=== PATIENT | male | born 1945 | race Caucasian/White ===

== ENCOUNTER 2024-07-04 00:32 | Emergency (ER) | payer MEDICARE, SELFPAY ==
[2024-07-04] VITALS (9 sets, daily range): BP systolic 137–245; BP diastolic 76–125; PULSE 89; RESP 16–17; TEMP 36.5–36.6; O2SAT 94–97
--- NOTE | 2024-07-04 00:53 | ED_ITS ---
HPI - Male Genitourinary General Chief complaint: Urogenital-Male Stated complaint: Urinary tract problems Time Seen by Provider: 07/04/24 00:39 Source: patient Mode of arrival: ambulatory Limitations: no limitations History of Present Illness HPI Narrative: This is a 78-year-old male with PMH of AFib, CKD on Eliquis, s/p suprapubic catheter who presents to the ED for chief complaint of urinary retention beginning this evening. Patient states that he started seeing blood clots in the catheter passing through for the past 2 days. States that he has had the suprapubic catheter for 14 years and had the catheter changed 2 weeks ago. States that he normally has an 18 [place] catheter which is what is currently in place, however he feels the catheter is different this time. At the time of my evaluation, the patient's catheter did start to spontaneously drain. Nursing staff found his bladder scan did contain 541 mL. During the interview, his catheter has drained about 500 mL of fluid. Denies fevers, chills or infectious symptoms. States he has not tried to flush the catheter. Related Data Allergies Allergy/AdvReac Type Severity Reaction Status Date / Time levofloxacin (From Levaquin) Allergy Intermediate Unknown Verified 07/04/24 00:45 Review of Systems Review of Systems: All systems as dictated in HPI Exam Narrative: GENERAL: Well-appearing, well-nourished, and in no acute distress. HEAD: Normocephalic, atraumatic. EYES: PERRLA and EOMI. ENT: Nares clear, no rhinorrhea or epistaxis. Mucous membranes moist. Oropharynx without tonsillar hypertrophy exudate or other lesions. NECK: Supple. No adenopathy or masses. CHEST: No respiratory distress. Clear to auscultation. No wheezes rales or rhonchi HEART: Regular rate and rhythm. No murmur heard. Normal peripheral pulses. ABDOMEN: Soft, nontender, nondistended, normal active bowel sounds. MSK: Normal range of motion. No edema. SKIN: Warm, dry, no rash. NEURO: Alert and oriented x4. No focal deficits. PSYCH: Normal mood and affect. : Suprapubic catheter in place. Draining out nearly 500 mL of grossly bloody urine on evaluation Course Vital Signs Vital signs: Vital Signs Temperature 97.7 F 07/04/24 00:37 Pulse Rate 89 04/23/25 00:37 Respiratory Rate 17 07/04/24 00:37 Blood Pressure 245/125 H 07/04/24 00:37 Pulse Oximetry 97 07/04/24 00:37 Oxygen Delivery Room Air 07/04/24 00:37 Temperature 97.9 F 07/04/24 02:55 Pulse Rate 89 07/04/24 02:55 Respiratory Rate 16 07/04/24 02:55 Blood Pressure 137/76 07/04/24 02:55 Pulse Oximetry 94 07/04/24 02:55 Oxygen Delivery Room Air 07/04/24 00:37 MDM - Male Genitourinary MDM Narrative Medical decision making narrative: This is a 78-year-old male who presents to the ED for chief complaint of urinary retention after recent hematuria on Eliquis with suprapubic catheter in place. Vitals are showing elevation of blood pressure on arrival, likely due to pain from urinary retention. Exam shows good replacement of suprapubic Madden catheter and spontaneous drainage of dark red blood up to 700 mL that drained freely. After this drainage, attempted to flush and irrigate the catheter with normal saline. Irrigation kit was used. The catheter flushed freely and syringe pullback freely and the color of the fluid has now transitioned into more of a information assurance officer red. Urinalysis concerning for overt urinary tract infection with nitrite positive urine, 2+ leuk esterase, greater than 100 white blood cells. Will prescribe Rx for cefdinir for the infection. Encouraged to follow-up very closely with his urologist on this issue. Will favor leaving in his current catheter as the urine is really throwing at this time and progressively clearing up. Patient will be discharged in stable condition. Supportive measures discussed and return precautions given. Patient is understanding and agreeable with plan for discharge with urology follow-up. Lab Data Labs: Lab Results 07/04/24 Range/Units 01:08 Urine Color Red H (Yellow) Urine Appearance Clear (Clear) Urine pH 6.5 (5.0-9.0) Ur Specific [place] 1.010 (1.001-1.035) Urine Protein 3+ H (Negative) mg/dL Urine Glucose (UA) Negative (Negative) mg/dL Urine Ketones Negative (Negative) mg/dL Ur Blood (Man) 3+ H (Negative) Urine Nitrate Positive H (Negative) Urine Bilirubin 1+ H (Negative) Urine Urobilinogen 0.2 (<2.0) mg/dL Leukocyte Esterase Rfl 2+ H (Negative) NORMA/UL Urine RBC >100 H (0-2) /hpf Urine WBC >100 H (0-3) /hpf Ur Squamous Epith Cells None seen (Few) /hpf Urine Bacteria None seen /hpf Urine Casts 0-2 Discharge Plan Discharge Clinical Impression: Urinary tract infection, Complication, suprapubic catheter obstruction Patient Disposition: Home Condition: Stable Patient Language: Citizen Of [place] Prescriptions: New cefdinir 300 mg capsule 300 mg PO Q12H 7 Days Qty: 14 0RF Follow-up/Referrals: UNKNOWN,DOCTOR [Primary Care Provider] - Time of Disposition: 02:09
--- OUTSIDE RECORDS SUMMARY | 2024-07-04 01:08 | XMS_ITS | Encounter Summary ---
Author Name [facility] [place] [facility] [place] Address [address] [place] [address] Care Team Providers Care Environmental Director Name Role Phone KARISHMA QUINTANA Primary Care Provider Unavailabl e Insurance Providers: All historical and current Section Date Range: From patient's date of to the date document was created. This section includes the names of all active insurance providers for the patient. Insurance Provider Type of Coverage Plan Name Start of Policy Coverage End of Policy Coverage Group Number Member ID Insurance Provider's Telephone Number Policy Gamboa's Name Patient's Relationship to Policy Gamboa [facility] Mar 14, 2022 [id number] [phone] MONICA GLORIA PATIENT [employer]ET[employer] RX PRESCRIPT [facility] Sep 11, 2016 [id number] MONICA GLORIA PATIENT [facility] Oct 12, 2000 [id number] MONICA GLORIA [employer] ([id number]) PRESCRIPT ION [facility] Oct 12, 2000 [id number] [phone] MONICA GLORIA PATIENT MEDICARE (WNR) MEDICARE (M) PART A Oct 12, 2017 PART A [id number] MONICA GLORIA PATIENT MH NET CLAIMS [facility] Oct 12, 2000 [id number] MONICA GLORIA RY PATIENT Selected Encounter This section includes the information on record at [place] for the Encounter. Date/Time Encounter Type Encounter Description Reason Pro vider Source May 11, 2024 07:49 AM Outpatient Encounter ADMIN PAT ACTIVTIES (MASNONCT) [facility] Encounter Template Text not used by [facility] Plan of Treatment: Future Appointments (+ 6 months) and Future Tests (+/- 45 days) The Plan of Treatment section includes future care activities for the patient from all [place] treatmentfacilities. This section includes future appointments and future orders which are active, pending or scheduled. Future Appointments This section includes appointments that were scheduled to occur 6 months from the date of the Encounter, up to a maximum of 20 appointments. The data comes from all [place] treatment facilities. Appointment Date/Time Appointment Type Appointme nt Facility Name May 18, 2024 09:30 AM AMBULATORY - NONE [facility] May 25, 2024 09:30 AM AMBULATORY - MEDICINE [facility] Lab Results: +/- 30 days of the encounter This section includes the Chemistry and Hematology Lab Results on record with [place] for the patient. Radiology Reports and Pathology Reports are provided separately, in subsequent sections. Lab Results This section contains the Chemistry/Hematology Results that were resulted 30 days before or 30 daysafter the date of the Encounter. Date/Time Source Result Type Result - Unit Interpretation Reference Range Specimen Type Comment May 18, 2024 09:31 AM [facility] A1C % BLOOD Specimen Type: BLOOD Comment: Normal: < or = 5.6% Pre-diabetes: 5.7-6.4% Diabetes Mellitus: > or = 6.5% Values obtained from A1C measurements can vary. For typical A1C assays, a reported value of 7.0 could actually be between 6.72 and 7.28 if measured by a reference method. A reported value of 9.0 could actually be between 8.73 and 9.27. Ref: http://www.ngsp. org/CAPdata.asp Ordering Provider: KARISHMA QUINTANA Report Released Date/Time: May 26, 2023 11:02 AM Reporting Lab: [address] [id number] Performing Lab: [address] [phone] A1C % 5.7 H 0.0-5.6 May 18, 2024 09:31 AM [facility] LIPID PNL PLASMA Specimen T ype: PLASMA Comment: eGFR was calculated using the CKD-EPI Creatinine (2020) equation. Low-risk levels (desirable) <200 mg/dL Moderate-risk levels (borderline) 200-239 mg/dL High-risk levels: >= 240 mg/dL Normal: <150 mg/dL -Borderline High: 150-199 mg/dL -High: 200-499 mg/dL -Very High: >500 mg/dL Optimal: <100 mg/dL -Near Optimal/Above Optimal: 100-129 mg/dL -Borderline High: 130-159 mg/dL -High: 160-189 mg/dL -Very High: >=190 mg/dL Ordering Provider: KARISHMA QUINTANA Report Released Date/Time: May 26, 2023 11:02 AM Reporting Lab: [address] [phone] Performing Lab: [address] [phone] DIR. HDL 30 mg/dL L >=60 TRIGLYCERIDES 108 mg/dL See Comment DIR LDL canc CHOL 136 mg/dL See Comment LDL (CALCULATED) 84 mg/dL See Comment May 18, 2024 09:31 AM [facility] COMPREHENSIVE PNL PLASMA Specime n Type: PLASMA Comment: eGFR was calculated using the CKD-EPI Creatinine (2020) equation. Low-risk levels (desirable) <200 mg/dL Moderate-risk levels (borderline) 200-239 mg/dL High-risk levels: >= 240 mg/dL Normal: <150 mg/dL -Borderline High: 150-199 mg/dL -High: 200-499 mg/dL -Very High: >500 mg/dL Optimal: <100 mg/dL -Near Optimal/Above Optimal: 100-129 mg/dL -Borderline High: 130-159 mg/dL -High: 160-189 mg/dL -Very High: >=190 mg/dL Ordering Provider: KARISHMA QUINTANA Report Released Date/Time: May 26, 2023 11:02 AM Reporting Lab: [address] [phone] Performing Lab: [address] [phone] ANION GAP 8 mmol/L 5-15 EGFR 40 mL/min/{1.73_m2} L >= 60 GLUCOSE 110 mg/dL H 70-99 POTASSIUM 3.9 mmol/L 3.5-4.7 SODIUM 144 mmol/L 136-145 BILI,TOTAL 0.8 mg/dL 0.2-1.2 PROTEIN, TOTL 6.9 g/dL 5.7-8.2 ALBUMIN 4.3 g/dL 3.4-5.0 ALKAL PHOS 104 U/L 45-117 ALT 20 U/L 10-65 AST 14 U/L 10-37 UREA NITROGEN 25 mg/dL H 7-21 CALCIUM, TOTAL 9.8 mg/dL 8.7-10.4 CO2 28 mmol/L 21-32 CHLORIDE 108 mmol/L 98-109 CREATININE 1.74 mg/dL H 0.73-1.18 May 18, 2024 09:31 AM [facility] CBC W/DIFF BLOOD Specimen T ype: BLOOD No comment entered. Ordering Provider: KARISHMA QUINTANA Report Released Date/Time: May 26, 2023 11:02 AM Reporting Lab: [place] [id number] [facility] [phone] Performing Lab: [address] [phone] WBC 9.3 10*3/uL 4.0-11.0 RBC 5.13 10*6/uL 4.20-5.70 HGB 15.7 g/dL 13.0-17.0 HCT 47.6 40.0-51.0 MCV 92.8 fL 82.0-99.0 MCH 30.6 pg 27.0-34.0 MCHC 33.0 g/dL 31.0-37.0 MPV 12.4 fL H 8.0-12.[address] 253 10*3/uL 130-400 RDW-CV 14.5 < 15.0 NEUTROPHILS% 77.2 LYMPHS% 13.4 MONOS% 6.7 EOS% 1.9 BASOS% 0.6 IG% 0.2 NEUTROPHILS# 7.1 10*3/uL 1.5-8.0 LYMPHS# 1.2 10*3/uL 1.0-4.0 MONOS# 0.6 10*3/uL 0.2-1.0 EOS# 0.2 10*3/uL 0.0-0.4 BASOS# 0.1 10*3/uL 0.0-0.2 IG# <0.1 10*3/uL 0.0-0.5 NRBC% 0.0 /100{WBCs} 0.0-0.2 NRBC# <0.01 10*3/uL 0.00-0.01 May 18, 2024 09:31 AM [facility] THYROID CASCADE PANEL SERUM Spe cimen Type: SERUM No comment entered. Ordering Provider: KARISHMA QUINTANA Report Released Date/Time: May 26, 2023 11:02 AM Reporting Lab: [place] [id number] [facility] [phone] Performing Lab: [address] [address] TSH3 ULTRA EIA 5.264 u[IU]/mL H 0.550-4.78 0 FREE T4-CASCADE 1.19 ng/dL 0.89-1.76 Encounter Notes: All associated encounter notes This section contains the clinical notes associated to the Encounter. Date/Time Encounter Note(s) Provider Source May 11, 2024 07:49 AM PHARMACY NOTE: LOCAL TITLE: PHARMACY/OUTPATIENT NOTE STANDARD TITLE: PHARMACY NOTE DATE OF NOTE: MAY 11, 2024@07:49 ENTRY DATE: MAY 11, 2024@07:49:42 AUTHOR: GWENDOLYN PEACE COSIGNER: URGENCY: STATUS: COMPLETED with active prescription for LEVOTHYROXINE (SYNTHROID). This product has been converted to the new formulary agent of GENERIC LEVOTHYROXINE SODIUM (XLCare/Ascent). prescription has been converted to the new product at the same dose as the previous LEVOTHYROXINE (SYNTHROID) prescription. was notified via letter. Providers are not required to re-check labs for most patients. However, some patients may benefit from follow-up thyroid function tests 4-6 weeks after starting the new product to evaluate the effect on thyroid function tests and any need for dose adjustment. This is particularly important if a patient reports signs or symptoms consistent with hyper or hypothyroidism. Patients were mailed a letter regarding the switch, instructing them to report any changes in these symptoms to their provider and were provided with the call center phone number for any questions. Evidence from several clinical trials suggests most patients switched from brand to generic levothyroxine (or generic to generic) do not appear to experience marked increased variability in thyroid hormone levels, need for dose adjustments, or risk of adverse events. /triston/ GWENDOLYN PEACE CHIEF OF PHARMACY Signed: 05/11/2024 07:50 GWENDOLYN PEACE HCS
--- OUTSIDE RECORDS SUMMARY | 2024-07-04 01:08 | XMS_ITS | Encounter Summary ---
Author Name [facility] [place] [facility] Address [address] [place] [address] Care Team Providers Care Hall Director Name Role Phone KALEB QUINTANA Primary Care Provider Unavailabl e Insurance [...] Gamboa's Name Patient's Relationship to Policy [facility] Mar 14, 2022 [id number] MONICA GLORIA PATIENT AETNA RX PRESCRIPT [facility] Sep 11, 2016 [id number] MONICA GLORIA PATIENT COVENTRY OF [facility] Oct 12, 2000 [id number] MONICA GLORIA SPOUSE [employer] ([id number]) PRESCRIPT ION COVEN TRY Oct 12, 2000 [id number] MONICA GLORIA PATIENT MEDICARE (WNR) MEDICARE (M) PART A Oct 12, 2017 PART A [id number] MONICA GLORIA PATIENT NET CLAIMS [facility] Oct 12, 2000 [id number] MONICA GLORIA PATIENT Selected Encounter This section includes the information on record at [place] for the Encounter. Date/Time Encounter Type Encounter Description Reason Provider Source May 25, 2024 09:30 AM OFFICE O/P EST MOD 30 MIN PRIMARY CARE/MEDICINE ICD-10-CM G60.3 Idiopathic progressive neuropathy LILIANKALEB PARKER [facility] Encounter Template Text not used by [place] Assessments - Encounter Diagnoses This section includes the primary and secondary diagnoses documented for the Encounter. Date/Time Primary/Secondary Diagnosis Diagnosis Name Provider Source Jun 07, 2024 11:58 AM PRIMARY Idiopathic progressive neuropathy [facility] Jun 07, 2024 11:58 AM SECONDARY Chronic kidney disease, unspecified [facility] Jun 07, 2024 11:58 AM SECONDARY Essential (primary) hypertension [facility] Jun 07, 2024 11:58 AM SECONDARY Gout, unspecified [facility] Jun 07, 2024 11:58 AM SECONDARY Hyperlipidemia, unspecified [facility] Jun 07, 2024 11:58 AM SECONDARY Hypothyroidism, unspecified [facility] Jun 07, 2024 11:58 AM SECONDARY Impaired fasting glucose [facility] Jun 07, 2024 11:58 AM SECONDARY Male erectile dysfunction, unspecified [facility] Jun 07, 2024 11:58 AM SECONDARY Unspecified atrial fibrillation [facility] Lab Results: +/- 30 days of the encounter This section includes the Chemistry and Hematology Lab Results on record with [place] for the patient. Radiology Reports and Pathology Reports are provided separately, in subsequent sections. Lab Results This section contains the Chemistry/Hematology Results that were resulted 30 days before or 30 daysafter the date of the Encounter. Date/Time Source Result Type Result - Unit Interpretation Reference Range Specimen Type Comment May 18, 2024 09:31 AM [facility] A1C % BLOOD Specimen Type: [...] and 9.27. Ref: [email or web address] [email or web address] Ordering Provider: KALEB QUINTANA Report Released Date/Time: May 26, 2023 11:02 AM Reporting Lab: [address] [address] Performing Lab: [address] [address] A1C % 5.7 H 0.0-5.6 May 18, 2024 09:31 AM [facility] LIPID PNL PLASMA Specimen T [...] mg/dL -Very High: >=190 mg/dL Ordering Provider: KALEB QUINTANA Report Released Date/Time: May 26, 2023 11:02 AM Reporting Lab: [address] [address] Performing Lab: [address] [address] DIR. HDL 30 mg/dL L >=60 TRIGLYCERIDES 108 mg/dL See Comment DIR LDL canc CHOL 136 mg/dL See Comment LDL (CALCULATED) 84 mg/dL See Comment May 18, 2024 09:31 AM [facility] COMPREHENSIVE PNL PLASMA Specime n [...] mg/dL -Very High: >=190 mg/dL Ordering Provider: KALEB QUINTANA Report Released Date/Time: May 26, 2023 11:02 AM Reporting Lab: [address] [address] Performing Lab: [address] [address] ANION GAP 8 mmol/L 5-15 EGFR 40 [...] H 0.73-1.18 May 18, 2024 09:31 AM [facility] CBC W/DIFF BLOOD Specimen T ype: BLOOD No comment entered. Ordering Provider: KALEB QUINTANA Report Released Date/Time: May 26, 2023 11:02 AM Reporting Lab: [address] [address] Performing Lab: [address] [address] WBC 9.3 10*3/uL 4.0-11.0 RBC 5.13 10*6/uL [...] 10*3/uL 0.00-0.01 May 18, 2024 09:31 AM [facility] THYROID CASCADE PANEL SERUM Spe cimen Type: SERUM No comment entered. Ordering Provider: KALEB QUINTANA Report Released Date/Time: May 26, 2023 11:02 AM Reporting Lab: [address] [address] Performing Lab: [address] [address] TSH3 ULTRA EIA 5.264 u[IU]/mL H 0.550-4.78 0 FREE T4-CASCADE 1.19 ng/dL 0.89-1.76 Vital Signs: All taken on the encounter date This section contains inpatient and outpatient Vital Signs collected on the date of the Encounter. Date/Time Temperature Pulse Blood Pressure Respiratory Rate SP02 Pain Height Weight Body Mass Index Source May 25, 2024 09:19 AM 99 73 138/71 [address] [facility] Social History: Smoking Status (Most current) and Tobacco Use (All prior to encounter date) This section includes the most current, and the historical, smoking and tobacco- related health factors from the [place] facility where the Encounter took place. Current Smoking Status This section includes the most current smoking, or tobacco-related health factor, from the [place] facility where the Encounter took place. Date/Time Current Smoking Status Comment Zen garcia May 25, 2024 09:30 AM [place]-TOBACCO USE FORMER CIGARETTES [facility] Tobacco Use History This section includes a history of the smoking, or tobacco-related health factors, that were collected on or before the date of the Encounter. The data comes from the [place] facility where the Encounter took place. Date/Time Smoking Status/Tobacco Use Comment F acility May 25, 2024 09:30 AM VA-TOBACCO USE FORMER CIGARETTES [facility] May 26, 2023 10:30 AM VA-TOBACCO FORMER USER [facility] May 26, 2023 10:30 AM VA-TOBACCO QUIT 15 YRS OR MORE [facility] Apr 05, 2022 02:30 PM VA-TOBACCO FORMER USER [facility] Apr 05, 2022 02:30 PM VA-TOBACCO QUIT 15 YRS OR MORE [facility] Mar 12, 2021 09:00 AM VA-TOBACCO FORMER USER [facility] Mar 12, 2021 09:00 AM VA-TOBACCO QUIT 15 YRS OR MORE [facility] Mar 13, 2020 03:30 PM VA-TOBACCO FORMER USER [facility] Mar 13, 2020 03:30 PM VA-TOBACCO QUIT 15 YRS OR MORE [facility] Feb 20, 2019 10:01 AM VA-TOBACCO NEVER USED [facility] Mar 02, 2018 08:25 AM VA-TOBACCO NEVER USED [facility] Apr 29, 2017 02:55 PM LIFETIME NON-USER OF TOBACCO [facility] Mar 22, 2016 09:28 AM LIFETIME NON-USER OF TOBACCO [facility] Jan 02, 2013 10:40 AM QUIT TOBACCO >7 YEARS AGO [facility] Encounter Notes: All associated encounter notes This section contains the clinical notes associated to the Encounter. Date/Time Encounter Note(s) Provider Source May 25, 2024 09:28 AM PRIMARY CARE NOTE: LOCAL TITLE: [facility] STANDARD TITLE: PRIMARY CARE NOTE DATE OF NOTE: MAY 25, 2024@09:28 ENTRY DATE: MAY 25, 2024@09:28:52 AUTHOR: KALEB QUINTANA EXP COSIGNER: URGENCY: STATUS: COMPLETED CHIEF COMPLAINT: Annual appt for ED, HTN, gout, hyperlipidemia, AFib, CKD, hypothyroidism, IFG, screening colon cancer HISTORY OF PRESENT ILLNESS: Nursing notes reviewed. This is a 78 year-old being seen today for above reason. Neuropathy - wants to discuss neuropathy - getting worse - states he takes an all natural supplement that seems to help with pain but still has a lot of numbness. Advsied meds will not help with the numbness. ED - on viagra. Med helps some. HTN - on metoprolol.No longer on this med. BP ok w/o med. Gout - on allopurinol. No gout attacks. hyperlipidemia- on crestor. Last labs showed total 136, trig 108, HDL 30, LDL 84. AFib - on apixiban. Labs ok. NO bleeding. CKD - last creat was 1.74 with eGFR 40. Adised to push fluids and avoid NSAIDS. Sees renal. hypothyroidism - on levothyrxoine. Labs ok. IFG - last HbA1c was 5.7%. Advised to cut back on carbs. screening colon cancer - would not do given age. PAST MEDICAL HISTORY: Medications: As listed in chart and reviewed. Allergies: LEVAQUIN >>Non-VA provider(s): PCP, nephrology, urology, cardiology SOCIAL HISTORY: Habits (Y/N): [n ] Tabacco [y ] Alcohol use [n ] Illicit drug use REVIEW OF SYSTEMS: General: No fever, chills, weight loss, or anorexia. No fatigue. HEENT: No visual or hearing changes. Cardiovascular: No chest pain, palptiations, edema. Respiratory: No cough, dyspnea, or hemoptysis. Gastrointestinal: No abdominal pain, nausea/vomiting, diarrhea, or hematochezia, or melena. Genitalurinary: No dysuria, urgency, frequency, hematuria. Musculoskeletal: No acute muscle or joint pain. Skin: No rash or skin lesions. Neurologic: No headache, dizziness, tingling, weakness. Numbness in feet. Psychoogical: No depressive or anxiety symptoms. No suicidal ideation. OBJECTIVE: Vital signs: DATE/TIME TEMP PULSE RESP BP PAIN WT (LB) P OX 05/25/24 @ 0919 99 73 16 138/71 0 259.9 93 Physical Exam: General: NAD. Awake, alert, oriented x3. Heart: Irreg/Irreg. No murmurs, gallops, rubs. Lungs: CTAB without crackles, rhonchi, or wheeze. Abdomen: Pos bowel sounds, soft, non-distended. No tenderness, guarding, rebound. No HSM. Extremities: No clubbing, cyanosis, edema. Psychiatric: Pleasant, cooperative. Affect is full and mood congruent. Labs: [x ] Reviewed with patient from 05/18/24. ASSESSMENT/PLAN: 1. neuropathy - advised meds would not help with numbness, Current OTC med is helping with the pain. 2. erectile dysfucntin - med helps some 3. hypertension - no longter on BP med 4. gout - continue med 5. hyperlipdiemia - good lipid control, continue med and diet 6. atrial fibrillation - rate controlled and anticaogulated. 7. chronic kidney disease- push fluids, avoid NSAIds, monitor labs. See renal. 8. hypothyroidsim- continue med 9. impared fasting glucose - cut back on carbs, monitoir labs Follow-up: 1 year [x ] Get labs 1 week before: Total time: 30 mins -For new medications, potential side effects reviewed with patient. -Medications refilled as needed. -Patient advised that if symptoms get worse or not better to call or go to nearest ED or urgent care for further evaluation. -Preventive medicine items reviewed with patient as indicated. -Patient advised to return to clinic as planned or as needed. PC-MEDICATION RECONCILIATION: The following medication list was reviewed with the patient/caregiver: MRT5 - Allergies/ADRs FACILITY ALLERGY/ADR -------- No Remote Allergy/ADR Data available for this patient [facility] MRR1 - Med Reconciliation INCLUDED IN THIS LIST: Alphabetical list of active outpatient prescriptions dispensed from this [facility] (local) and dispensed from another VA or DoD facility (remote) as well as inpatient orders (local pending and active), local clinic medications, locally documented non-VA medications, and local prescriptions that have or been discontinued in the past 90 days. Non-VA Meds Last Documented On: Mar 22, 2016 NOTE The display of VA prescriptions dispensed from another VA or DoD facility (remote) is limited to active outpatient prescription entries matched to National Drug File at the originating site and may not include some items such as investigational drugs, compounds, etc. NOT INCLUDED IN THIS LIST: Medications self-entered by the patient into personal health records (i.e. [employer]) are NOT included in this list. Non-VA medications documented outside this [place], remote inpatient orders (regardless of status) and remote clinic medications are NOT included in this list. The patient and provider must always discuss medications the patient is taking, regardless of where the medication was dispensed or obtained. OUTPT ALLOPURINOL 300MG TAB (Status = Discontinued) TAKE ONE TABLET BY MOUTH DAILY WITH FOOD - FOR GOUT Rx# [id number] Last Released: 05/08/24 Qty/Days Supply: Rx Expiration Date: 05/26/24 Refills Remainin OUTPT ALLOPURINOL 300MG TAB (Status = Active/Suspended) TAKE ONE TABLET BY MOUTH DAILY WITH FOOD - FOR GOUT Rx# [id number] Last Released: Qty/Days Supply: Rx Expiration Date: 05/26/25 Refills Remainin OUTPT APIXABAN 5MG TAB (Status = Discontinued) TAKE ONE TABLET BY MOUTH TWICE A DAY BLOOD THINNER Rx# [id number] Last Released: 05/02/24 Qty/Days Supply: Rx Expiration Date: 05/26/24 Refills Remainin OUTPT APIXABAN 5MG TAB (Status = Active/Suspended) TAKE ONE TABLET BY MOUTH TWICE A DAY BLOOD THINNER Rx# [id number] Last Released: Qty/Days Supply: Rx Expiration Date: 05/26/25 Refills Remainin OUTPT LEVOTHYROXINE NA (SYNTHROID) 50MCG TAB (Status = Discontinued) TAKE ONE TABLET BY MOUTH DAILY FOR THYROID Rx# [id number] Last Released: 02/06/24 Qty/Days Supply: Rx Expiration Date: 05/20/24 Refills Remainin Indication: FOR THYROID OUTPT LEVOTHYROXINE NA (SYNTHROID) 50MCG TAB (Status = Discontinued) TAKE ONE TABLET BY MOUTH DAILY FOR THYROID Rx# [id number] Last Released: 04/25/24 Qty/Days Supply: Rx Expiration Date: 04/24/25 Refills Remainin Indication: FOR THYROID OUTPT LEVOTHYROXINE NA 50MCG TAB (Status = Active/Suspended) TAKE ONE TABLET BY MOUTH DAILY FOR THYROID FOR THYROID (REPLACES SYNTHROID) Rx# [id number] Last Released: QtyDays Supply: Rx Expiration Date: 04/24/25 Refills Remainin Indication: FOR THYROID OUTPT METOPROLOL TARTRATE 25MG TAB (Status = Discontinued) TAKE ONE-HALF TABLET BY MOUTH TWICE A DAY WITH MEALS FOR BLOOD PRESSURE Rx# [id number] Last Released: 05/27/23 Qty/Days Supply: Rx Expiration Date: 05/26/24 Refills Remainin Indication: FOR BLOOD PRESSURE OUTPT ROSUVASTATIN CA 10MG TAB (Status = Active) TAKE ONE TABLET BY MOUTH AT BEDTIME CALL YOUR PROVIDER IF YOU HAVE MUSCLE PAIN, TENDERNESS OR WEAKNESS. STOP LOVASTATIN Rx# [id number] Last Released: 05/27/23 Qty/Days Supply: Rx Expiration Date: 05/26/24 Refills Remainin Indication: FOR CHOLESTEROL OUTPT SILDENAFIL CITRATE 100MG TAB (Status = Discontinued) TAKE ONE TABLET BY MOUTH EVERY DAY NEEDED TAKE 30 TO 60 MINUTES PRIOR TO SEXUAL ACTIVITY; LIMITED TO 6 DOSES PER MONTH Rx# [id number] Last Released: 05/11/24 Qty/Days Supply: Rx Expiration Date: 05/26/24 Refills Remainin Indication: FOR ERECTILE DYSFUNCTION OUTPT SILDENAFIL CITRATE 100MG TAB (Status = Active/Suspended) TAKE ONE TABLET BY MOUTH EVERY DAY NEEDED TAKE 30 TO 60 MINUTES PRIOR TO SEXUAL ACTIVITY; LIMITED TO 6 DOSES PER MONTH Rx# [id number] Last Released: QtyDays Supply: Rx Expiration Date: 05/26/25 Refills Remainin Indication: FOR ERECTILE DYSFUNCTION SUPPLIES Potential risks, benefits, and alternative to medications prescribed were discussed with /caregiver who was given an opportunity to ask questions, which were answered to the best of my ability and seemingly to their satisfaction. Musella/caregiver was/were instructed to contact provider (means provided) with any concerns or questions. A list of reconciled medications was provided to the Musella/caregiver. Diagnostic Colonoscopy: (+) FIT/FOBT identified. A diagnostic Colonoscopy is due based on information available to this reminder. A diagnostic colonoscopy is not recommended/indicated. Reason: age Due to patient's age, risk level, and/or co-morbid conditions, discontinuation of asymptomatic colorectal cancer screening/surveillance is recommended. This recommendation has been discussed with the patient and/or guardian /triston/ Kaleb Quintana M.D. STAFF PACT PHYSICIAN Signed: 05/25/2024 09:43 KALEB QUINTANA [facility] May 25, 2024 09:19 AM NURSING NOTE: LOCAL TITLE: BETH/PREVMED STANDARD TITLE: NURSING NOTE DATE OF NOTE: MAY 25, 2024@09:19 ENTRY DATE: MAY 25, 2024@09:19:16 AUTHOR: FREDA CESAR EXP COSIGNER: URGENCY: STATUS: COMPLETED TWO OR MORE PATIENT IDENTIFIERS REQUIRED FULL NAME SS NUMBER Date here for annual appointment PCP: Josue Specialists: nephrology, urology, cardiology wants to discuss neuropathy - getting worse - states he takes an all natural supplement that seems to help with pain but still has a lot of numbness Alcohol Use Screen (AUDIT-C): Alcohol Screen: SCREEN FOR ALCOHOL (AUDIT-C) An alcohol screening test (AUDIT-C) was negative (score=1). 1. How often did you have a drink containing alcohol in the past year? Consider a drink to be a 12 ounce can or bottle of regular beer, 8 ounces of malt liquor, a 5 ounce glass of table wine, or a 1.5 ounce shot of liquor (like scotch, gin, or vodka). Monthly or less 2. How many drinks containing alcohol did you have on a typical day when you were drinking in the past year? One or two drinks 3. How often did you have six or more drinks on one occasion in the past year? Never Depression Screening: Perform PHQ-2 A PHQ-2 screen was performed. The score was 0 which is a negative screen for depression. Over the past two weeks, how often have you been bothered by the following problems? 1. Little interest or pleasure in doing things Not at all 2. Feeling down, depressed, or hopeless Not at all Sexual Orientation: The patient thinks of their sexual orientation as: Prefer not to answer RHS Screen: RHS Screen Environmental Check Screening was not completed at this time due to: Other: declined Suicide Screen: C-SSRS Screening [place] Suicide Severity Rating Scale (C-SSRS) screener 1. Over the past month, have you wished you were or wished you could go to sleep and not wake up? No 2. Over the past month, have you had any actual thoughts of killing yourself? No 3. Over the past month, have you been thinking about how you might do this? Response not required due to responses to other questions. 4. Over the past month, have you had these thoughts and had some intention of acting on them? Response not required due to responses to other questions. 5. Over the past month, have you started to work out or worked out the details of how to kill yourself? Response not required due to responses to other questions. 6. If yes, at any time in the past month did you intend to carry out this plan? Response not required due to responses to other questions. 7. In your lifetime, have you ever done anything, started to do anything, or prepared to do anything to end your life (for example, collected pills, obtained a gun, gave away valuables, went to the roof but didn't jump)? No 8. If YES, was this within the past 3 months? Response not required due to responses to other questions. BETH-EDUCATION ASSESSMENT: `````````````````````````` ```````````` ANNUAL EDUCATION NEEDS/BARRIER ASSESSMENT Primary healthcare language: Estonian Barriers to Learning: Physical: None Cognitive: Memory Problems Comment: short term Socioeconomic: None Preferred Learning Methods: Demonstration - Watching and the Doing `````````````````````````` ```````````` BETH-EXERCISE SCREEN: Patient Refused Exercise Screen. Has the patient fallen within the past 12 months? YES. Known reason: Reason: loss of balance/neuropathy BETH-PT AT RISK INCAPACITATED SCREEN: 1) Does the patient meet any of the criteria for being considered incapacitated? [ NO ] BETH-SKIN RISK ASSESSMENT: BETH/SKIN RISK REMINDER *EDUCATION FACULTY MEMBER* The reports no current pressure ulcers, wounds, or a history of pressure ulcers. The reports no use of a wheelchair for mobility at least 75% of the time. BETH/ROA INDEX (ADLS SCREEN): FUNCTIONAL: Roa Index of [place] in Activities of Daily Living ACTIVITIES INDEPENDENCE (1 point) NO supervision, direction, or personal assistance. DEPENDENCE (0 points) WITH supervision, direction, personal assistance, OR total care. BATHING Point(s) (1 point) Baths self completely or needs help in bathing only a single a single part of the body such as the back, genital area or disabled extremity. DRESSING Point(s) (1 point) Gets clothes from closets and drawers and puts on clothes and outer garments complete with fasteners. May complete with fasteners. May have help tying shoes. TOILETING Point(s) (1 point) Goes to toilet, gets on and off, arranges clothes, cleans genital area without help.\ TRANSFERRING Point(s) (1 point) Moves in and out of bed or chair unassisted. Mechanical transferring aides are acceptable. CONTINENCE Point(s) (1 point) Exercises complete self control over urination and defecation. FEEDING Point(s) (1 point) Gets food from plate into mouth without help Preparation of food may be done by another person. TOTAL POINTS: 6=High (patient independent) 0=Low (patient very dependent) 6 Tobacco Use Screening: The patient is a former cigarette smoker. Quit smoking GREATER THAN OR EQUAL to 15 years. The patient has never used other types of tobacco. Td/Tdap Immunization: The patient declines to receive the recommended dose of Td/Tdap vaccine. Immunization: TD(ADULT) UNSPECIFIED FORMULATION Refusal Reason: PATIENT DECISION Patient refuses all immunization(s) in the Td group Date Documented: 05/25/24 09:26 Stress: Musella reports nothing in the last 6 months that has caused worry or stress. COVID-19 Immunization: Refused Moderna Monovalent COVID-19 vaccine Immunization: COVID-19 (MODERNA), MRNA, LNP-S, PF, 50 MCG/0.5 ML (AGES 12 + YEARS) Refusal Reason: PATIENT DECISION Patient refuses all immunization(s) in the COVID-19 group Date Documented: 05/25/24 09:26 RSV Immunization: Respiratory Syncytial Virus (RSV) Vaccine: Refused [employer] (RSV vaccine, adjuvanted, Arexvy). Immunization: RSV, RECOMBINANT, PROTEIN SUBUNIT RSVPREF3, ADJUVANT RECONSTITUTED, 0.5 ML, PF Refusal Reason: PATIENT DECISION Patient refuses all immunization(s) in the RSV group Date Documented: 05/25/24 09:26 /triston/ FREDA CESAR lpn Signed: 05/25/2024 09:27 FREDA CESAR [facility]
--- OUTSIDE RECORDS SUMMARY | 2024-07-04 01:08 | XMS_ITS | Encounter Summary ---
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 Sep 11, 2016 [id number] [phone] MONICA GLORIA [facility] Oct 12, 2000 [id number] MONICA GLORIA [employer] ([id number]) PRESCRIPT ION [facility]Y Oct 12, 2000 [id number] [phone] MONICA GLORIA PATIENT MEDICARE (WNR) MEDICARE (M) PART A Oct 12, 2017 PART A [id number] [phone] MONICA GLORIA PATIENT MH NET CLAIMS [facility] Oct 12, 2000 [id number] MONICA GLORIA PATIENT Selected Encounter This section includes the information on [place] at [place] for the Encounter. Date/Time Encounter Type Encounter Description Reason Pro vider Source Sep 30, 2023 12:32 PM Outpatient Encounter ADMIN PAT ACTIVTIES (MASNONCT) [facility] Encounter Template Text not used by [facility] Encounter Notes: All associated encounter notes This section contains the clinical notes associated to the Encounter. Date/Time Encounter Note(s) Provider Source Sep 30, 2023 12:35 PM PHARMACY LETTERS: LOCAL TITLE: ANTICOAGULATION HUB DOAC ADHERENCE LETTER STANDARD TITLE: PHARMACY LETTERS DATE OF NOTE: SEP 30, 2023@12:35 ENTRY DATE: SEP 30, 2023@12:35:19 AUTHOR: DARLIN NUNEZIGNER: URGENCY: STATUS: COMPLETED ALIA GLORIA [address] [place] [address] SEP 30, 2023 Dear ALIA GLORIA The [place] [facility] is responsible for ensuring safe and effective use of your apixaban (Eliquis). Our records show that you have not filled your prescription in over a month. Not taking this medication as prescribed can result in a higher risk of stroke and/or life-threatening blood clots. Please remember to take your medication exactly as prescribed and always alert your health care providers that you are taking this medication. You can refill your prescription by calling . Please contact your PACT team if you have stopped taking this medication or if other medical providers have advised you to change your dose. If you have any planned interruptions in therapy (e.g. surgery) please report this as well. THIS IS A COURTESY LETTER. IF YOU ARE TAKING apixaban (Eliquis) REGULARLY, YOU DO NOT NEED TO CONTACT [facility], [place] [facility] DARLIN NUNEZ [facility] Sep 30, 2023 12:32 PM PHARMACY NOTE: LOCAL TITLE: ANTICOAGULATION HUB DOAC STANDARD TITLE: PHARMACY NOTE DATE OF NOTE: SEP 30, 2023@12:32 ENTRY DATE: SEP 30, 2023@12:32:09 AUTHOR: DARLIN NUNEZIGNER: URGENCY: STATUS: COMPLETED Direct Oral Anticoagulant (DOAC) Surveillance - Clinical Technical Sales Specialist Drug: Apixaban WEIGHT/LABS: 246.9 lb [111.99 kg] (05/26/2023 10:12) BMI: 32.6 (MAY 26, 2023@10:12:49) CrCl=66.52 (Wt: 05/26/2023 10:12) (Actual Body Weight) SCr Date: MAY 19, 2023 [place] Labs: Test Name Result Units Ref Range Collection DT CREATININE 1.52 H mg/dL .73 -1.18 05/19/2023 Test Name Result Units Ref Range Collection DT HGB 16.0 g/dL 13 - 17 05/19/2023 Test Name Result Units Ref Range Collection DT HCT 48.4 % 40 - 51 05/19/2023 Collection DT Specimen Test Name Result Units Ref Range 05/19/2023 09:[address] 234 K/uL 130 - 400 Test Name Result Units Ref Range Collection DT AST 18 U/L 10 - 37 05/19/2023 Test Name Result Units Ref Range Collection DT ALT 18 U/L 10 - 65 05/19/2023 ASSESSMENT: Potential Nonadherance Overdue for Refill by 35+ days. Attempted to reach patient/caregiver by phone to assess potential nonadherence. Per the DOAC PMT, patient has not filled his DOAC since 05/27/23 for 90 day supply. Unable to reach patient/caregiver to assess. Will send an adherence letter and/or Secure Message. Alerting PACT to review and follow-up if appropriate. Time Spent in minutes: 4 /triston/ Darlin Nunez Clinical Technical Sales Specialist Signed: 09/30/2023 12:35 Receipt Acknowledged By: 09/30/2023 12:37 /es/ Kaleb Quintana M.D. MVinicius 09/30/2023 12:39 /es/ Jonathan Elias RN RN for DARLIN JOHNSTON [facility]
--- OUTSIDE RECORDS SUMMARY | 2024-07-04 01:09 | XMS_ITS | Continuity of Care Document ---
Author Name [facility] Organization [facility] Care Team Providers Care Surface Lay Out Technician Name Role Phone [facility] Unavailable Unavailable Problems Combined list of problems from [facility] and [facility] facilities. It does not include entries that were removed or entered in error. Problem Status Onset Date Problem Type Date of Resolution Comments Source Acquired trigger finger Active Condition [facility] Benign essential hypertension Active Condition [facility] Blood glucose abnormal Active Condition [facility] Chronic atrial fibrillation Active Condition [facility] Erectile dysfunction (SNOMED CT [id number]) Active Condition [facility] Exposure to Potentially Hazardous Substance (SCT [id number]) Active Condition [facility] Gout Active Condition [facility] Hyperlipidemia Active Condition [facility] Hypothyroidism Active Condition [facility] Neuropathy Active Condition [facility] Raised prostate specific antigen Active Condition [facility] Renal failure syndrome Active Condition [facility] Diagnosis: ICD-10-CM 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 Medication Details Route Status Patient Instructions Prescription Expires Prescription Number Last Dispense Date Ordering Provider Order Date Order Qty Source ALLOPURINOL 300MG TAB TAKE ONE TABLET BY MOUTH DAILY WITH FOOD - FOR GOUT ORAL SUSPEND ED 05/26/2025 [id number] ALBA QUINTANA [address] [place] [address] ALLOPURINOL 300MG TAB TAKE ONE TABLET BY MOUTH DAILY WITH FOOD - FOR GOUT ORAL DISCONT INUED 05/26/2024 [id number] ALBA QUINTANA [address] [place] [address] APIXABAN 5MG TAB TAKE ONE TABLET BY MOUTH TWICE A DAY BLOOD THINNER ORAL SUSPEND ED 05/26/2025 [id number] 5 ALBA QUINTANA 2024 [address] [facility] APIXABAN 5MG TAB TAKE ONE TABLET BY MOUTH TWICE A DAY BLOOD THINNER ORAL DISCONT INUED 05/26/2024 [id number] 5 ALBA QUINTANA 2023 180 [facility] LEVOTHYROXI NE NA 50MCG TAB TAKE ONE TABLET BY MOUTH DAILY FOR THYROID FOR THYROID (REPLACE S SYNTHROI D) ORAL SUSPEND ED 04/24/2025 [id number] ALBA QUINTANA 2024 90 [facility] LEVOTHYROXI NE NA 50MCG TAB (SYNTHROID) TAKE ONE TABLET BY MOUTH DAILY FOR THYROID ORAL DISCONT INUED 04/24/2025 [id number] 5 ALBA QUINTANA 2024 90 [facility] LEVOTHYROXI NE NA 50MCG TAB (SYNTHROID) TAKE ONE TABLET BY MOUTH DAILY FOR THYROID ORAL DISCONT INUED 05/20/2024 [id number] 4 ALBA QUINTANA 2023 90 [facility] METOPROLOL TARTRATE 25MG TAB TAKE ONE-HALF TABLET BY MOUTH TWICE A DAY WITH MEALS FOR BLOOD PRESSURE ORAL DISCONT INUED BY PROVIDE R 05/26/2024 [id number] 4 ALBA QUINTANA 2023 90 [facility] ROSUVASTATI N CA 10MG TAB TAKE ONE TABLET BY MOUTH AT BEDTIME CALL YOUR PROVIDER IF YOU HAVE MUSCLE PAIN, TENDERNE SS OR WEAKNESS . STOP LOVASTAT IN ORAL 05/26/2024 [id number] 4 ALBA QUINTANA 2023 90 [facility] SILDENAFIL CITRATE 100MG TAB TAKE ONE TABLET BY MOUTH EVERY DAY NEEDED TAKE 30 TO 60 MINUTES PRIOR TO SEXUAL ACTIVITY ; LIMITED TO 6 DOSES PER MONTH ORAL SUSPEND ED 05/26/2025 [id number] 5 ALBA QUINTANA 2024 18 [facility] SILDENAFIL CITRATE 100MG TAB TAKE ONE TABLET BY MOUTH EVERY DAY NEEDED TAKE 30 TO 60 MINUTES PRIOR TO SEXUAL ACTIVITY ; LIMITED TO 6 DOSES PER MONTH ORAL DISCONT INREGENCY [facility] 05/26/2024 [id number] ALBA QUINTANA 2023 18 [facility] SILDENAFIL CITRATE 100MG TAB TAKE ONE TABLET BY MOUTH EVERY DAY NEEDED TAKE 30 TO 60 MINUTES PRIOR TO SEXUAL ACTIVITY ; LIMITED TO 6 DOSES PER MONTH ORAL DISCONT INREGENCY [facility] 05/26/2024 [id number] 4 ALBA QUINTANA 2023 6 [facility] Allergies, Adverse Reactions, Alerts Combined list of allergies from [facility] facilities. It does not include entries that were removed or entered in error. Substance Category Reaction Severity Reaction type Status Date Reported Comments Source JUDSON Propensity to adverse reactions to drug (finding) active 01/02/2013 [facility] Immunizations Combined list of available immunizations from the [facility] Defense and [facility] facilities. Immunization Series Date Given Administered By Site Reaction Lot Number CVX Code Drug Trolley Collector Status Comments Source INFLUENZA, HIGH-DOSE, TRIVALENT, PF 2023 COLLIN MOMIN LEFT DELTO ID [id number] 135 complet ed [facility] [place], [facility] INFLUENZA, HIGH-DOSE, QUADRIVALENT 2022 AVIS POLLACK LEFT DELTO ID [id number] 197 complet ed Completed Series, [facility] [place], [facility] INFLUENZA VACCINE, QUADRIVALENT, ADJUVANTED 2021 205 complet ed [facility] COVID-19 (PFIZER), MRNA, LNP-S, PF, 30 MCG/0.3 ML DOSE, ODILON-SUCROSE (AGES 12+ YEARS) 4 2021 217 complet ed HISTORICA L INFORMATI ON - FROM OTHER REGISTRY, [facility] ZOSTER RECOMBINANT 2 2021 187 complet ed [facility] ZOSTER RECOMBINANT 1 2020 187 complet ed [facility] COVID-19 (MODERNA), MRNA, LNP-S, PF, 100 MCG OR 50 MCG DOSE 3 2020 207 complet ed [facility] INFLUENZA, HIGH-DOSE, QUADRIVALENT 7 2020 197 complet ed HISTORICA L INFORMATI ON - FROM OTHER REGISTRY, [facility] INFLUENZA, UNSPECIFIED FORMULATION 2020 88 complet ed [facility] COVID-19 (MODERNA), MRNA, LNP-S, PF, 100 MCG OR 50 MCG DOSE 2 2020 207 complet ed [facility] COVID-19 (MODERNA), MRNA, LNP-S, PF, 100 MCG OR 50 MCG DOSE 1 2020 207 complet ed [facility] INFLUENZA, INJECTABLE, QUADRIVALENT, PRESERVATIVE FREE 6 2019 150 complet ed HISTORICA L INFORMATI ON - FROM OTHER REGISTRY, [facility] INFLUENZA, UNSPECIFIED FORMULATION 5 2019 88 complet ed HISTORICA L INFORMATI ON - FROM OTHER REGISTRY, [facility] INFLUENZA, UNSPECIFIED FORMULATION 2019 88 complet ed [facility] INFLUENZA, TRIVALENT, ADJUVANTED 2018 168 complet ed [facility] INFLUENZA, TRIVALENT, ADJUVANTED 2017 168 complet ed [facility] INFLUENZA, SEASONAL, INJECTABLE, PRESERVATIVE FREE 2016 140 complet ed Left Deltoid 0.5ml IM [facility] INFLUENZA, SEASONAL, INJECTABLE, PRESERVATIVE FREE 4 2015 140 complet ed HISTORICA L INFORMATI ON - FROM OTHER REGISTRY, [facility] INFLUENZA, SEASONAL, INJECTABLE, PRESERVATIVE FREE 2015 140 complet ed Left Deltoid 0.5ml IM [facility] INFLUENZA, UNSPECIFIED FORMULATION 2015 88 complet ed [facility] INFLUENZA, UNSPECIFIED FORMULATION 2014 YA CAMPA 88 complet ed [facility] PNEUMOCOCCAL POLYSACCHARID E PPV23 1 2014 33 complet ed HISTORICA L INFORMATI ON - FROM OTHER REGISTRY, [facility] PNEUMOCOCCAL CONJUGATE PCV 13 2013 133 complet ed [facility] ZOSTER LIVE 2013 121 complet ed [facility] INFLUENZA, HIGH DOSE SEASONAL 3 2013 135 complet ed HISTORICA L INFORMATI ON - FROM OTHER REGISTRY, [facility] INFLUENZA, UNSPECIFIED FORMULATION 2013 88 complet ed [facility] INFLUENZA, SEASONAL, INJECTABLE, PRESERVATIVE FREE 2 2013 140 complet ed HISTORICA L INFORMATI ON - FROM OTHER REGISTRY, [facility] TDAP 1 2013 115 complet ed HISTORICA L INFORMATI ON - FROM OTHER REGISTRY, [facility] ZOSTER LIVE 1 2013 121 complet ed HISTORICA L INFORMATI ON - FROM OTHER [facility], [facility] PNEUMOCOCCAL POLYSACCHARID E PPV23 2012 33 complet ed Right Deltoid 0.5ml IM [facility] TDAP 2012 115 complet ed Left Deltoid 0.5ml IM [facility] INFLUENZA, SEASONAL, INJECTABLE, PRESERVATIVE FREE 1 2012 140 complet ed HISTORICA L INFORMATI ON - FROM OTHER REGISTRY, [facility] INFLUENZA, UNSPECIFIED FORMULATION 2012 88 complet ed [facility] HEP B, UNSPECIFIED FORMULATION 3 1992 45 complet ed HISTORICA L INFORMATI ON - FROM OTHER REGISTRY, [facility] HEP B, UNSPECIFIED FORMULATION 2 1992 45 complet ed HISTORICA L INFORMATI ON - FROM OTHER REGISTRY, [facility] HEP B, UNSPECIFIED FORMULATION 1 1992 45 complet ed HISTORICA L INFORMATI ON - FROM OTHER REGISTRY, [facility] Results Combined list of recent chemistry, hematology and other laboratory results from [facility] and [facility], ranging from 15 months to all on record, depending upon the facility. Order Name Results Value Reference Range Date Interpretation Specimen Comments Source A1C % HEMOGLOBIN A1C/HEMOGL OBIN.TOTAL IN BLOOD 5.7 0.0 - 5.6 05/18 H Specimen Type: BLOOD Comment: Normal: < or = 5.6% Pre-diabete s: 5.7-6.4% Diabetes Mellitus: > or = 6.5% Values obtained from A1C measurement s can vary. For typical A1C assays, a reported value of 7.0 could actually be between 6.72 and 7.28 if measured by a reference method. A reported value of 9.0 could actually be between 8.73 and 9.27. Ref: http://www. ngsp.org/[place] Pdata.asp Ordering Provider: CHRIS QUINTANA Report Released Date/Time: May 26, 2023 11:02 AM Reporting Lab: [facility] [address] [phone] Performing Lab: [facility] [address] [address] [facility] LIPID PNL CHOLESTERO L IN HDL [MASS/VOLU ME] IN SERUM OR PLASMA 30 mg/dL 60 05/18 L Specimen Type: PLASMA Comment: eGFR was calculated using the CKD-EPI Creatinine (2020) equation. Low-risk levels (desirable) <200 mg/dL Moderate-ri sk levels (borderline ) 200-239 mg/dL High-risk levels: >= 240 mg/dL Normal: <150 mg/dL -Borderline High: 150-199 mg/dL -High: 200-499 mg/dL -Very High: >500 mg/dL Optimal: <100 mg/dL -Near Optimal/Abo ve Optimal: 100-129 mg/dL -Borderline High: 130-159 mg/dL -High: 160-189 mg/dL -Very High: >=190 mg/dL Ordering Provider: CHRIS QUINTANA Report Released Date/Time: May 26, 2023 11:02 AM Reporting Lab: [address] [address] Performing Lab: [address] [phone] [facility] LIPID PNL TRIGLYCERI DE [MASS/VOLU ME] IN SERUM OR PLASMA 108 mg/dL 05/18 Specimen Type: PLASMA Comment: eGFR was calculated using the CKD-EPI Creatinine (2020) equation. Low-risk levels (desirable) <200 mg/dL Moderate-ri sk levels (borderline ) 200-239 mg/dL High-risk levels: >= 240 mg/dL Normal: <150 mg/dL -Borderline High: 150-199 mg/dL -High: 200-499 mg/dL -Very High: >500 mg/dL Optimal: <100 mg/dL -Near Optimal/Abo ve Optimal: 100-129 mg/dL -Borderline High: 130-159 mg/dL -High: 160-189 mg/dL -Very High: >=190 mg/dL Ordering Provider: CHRIS QUINTANA Report Released Date/Time: May 26, 2023 11:02 AM Reporting Lab: [address] [address] Performing Lab: [address] [address] [facility] LIPID PNL CHOLESTERO L IN LDL [MASS/VOLU ME] IN SERUM OR PLASMA BY DIRECT ASSAY [facility] 05/18 Specimen Type: PLASMA Comment: eGFR was calculated using the CKD-EPI Creatinine (2020) equation. Low-risk levels (desirable) <200 mg/dL Moderate-ri sk levels (borderline ) 200-239 mg/dL High-risk levels: >= 240 mg/dL Normal: <150 mg/dL -Borderline High: 150-199 mg/dL -High: 200-499 mg/dL -Very High: >500 mg/dL Optimal: <100 mg/dL -Near Optimal/Abo ve Optimal: 100-129 mg/dL -Borderline High: 130-159 mg/dL -High: 160-189 mg/dL -Very High: >=190 mg/dL Ordering Provider: CHRIS QUINTANA Report Released Date/Time: May 26, 2023 11:02 AM Reporting Lab: [address] [address] Performing Lab: [place] [phone] [facility] LIPID PNL CHOLESTERO L [MASS/VOLU ME] IN SERUM OR PLASMA 136 mg/dL 05/18 Specimen Type: PLASMA Comment: eGFR was calculated using the CKD-EPI Creatinine (2020) equation. Low-risk levels (desirable) <200 mg/dL Moderate-ri sk levels (borderline ) 200-239 mg/dL High-risk levels: >= 240 mg/dL Normal: <150 mg/dL -Borderline High: 150-199 mg/dL -High: 200-499 mg/dL -Very High: >500 mg/dL Optimal: <100 mg/dL -Near Optimal/Abo ve Optimal: 100-129 mg/dL -Borderline High: 130-159 mg/dL -High: 160-189 mg/dL -Very High: >=190 mg/dL Ordering Provider: CHRIS QUINTANA Report Released Date/Time: May 26, 2023 11:02 AM Reporting Lab: [address] [address] Performing Lab: [address] [address] [facility] LIPID PNL CHOLESTERO L IN LDL [MASS/VOLU ME] IN SERUM OR PLASMA BY CALCULAKADIE Mooney 84 mg/dL 05/18 Specimen Type: PLASMA Comment: eGFR was calculated using the CKD-EPI Creatinine (2020) equation. Low-risk levels (desirable) <200 mg/dL Moderate-ri sk levels (borderline ) 200-239 mg/dL High-risk levels: >= 240 mg/dL Normal: <150 mg/dL -Borderline High: 150-199 mg/dL -High: 200-499 mg/dL -Very High: >500 mg/dL Optimal: <100 mg/dL -Near Optimal/Abo ve Optimal: 100-129 mg/dL -Borderline High: 130-159 mg/dL -High: 160-189 mg/dL -Very High: >=190 mg/dL Ordering Provider: CHRIS QUINTANA Report Released Date/Time: May 26, 2023 11:02 AM Reporting Lab: [address] [address] Performing Lab: [address] [address] [facility] COMPREHE NSIVE PNL ANION GAP IN SERUM OR PLASMA 8 mmol/L 5 - 15 05/18 Specimen Type: PLASMA Comment: eGFR was calculated using the CKD-EPI Creatinine (2020) equation. Low-risk levels (desirable) <200 mg/dL Moderate-ri sk levels (borderline ) 200-239 mg/dL High-risk levels: >= 240 mg/dL Normal: <150 mg/dL -Borderline High: 150-199 mg/dL -High: 200-499 mg/dL -Very High: >500 mg/dL Optimal: <100 mg/dL -Near Optimal/Abo ve Optimal: 100-129 mg/dL -Borderline High: 130-159 mg/dL -High: 160-189 mg/dL -Very High: >=190 mg/dL Ordering Provider: CHRIS QUINTANA Report Released Date/Time: May 26, 2023 11:02 AM Reporting Lab: [address] [address] Performing Lab: [address] [address] [facility] COMPREHE NSIVE PNL GLOMERULAR FILTRATION RATE/1.73 SQ M.PREDICTE D [VOLUME RATE/AREA] IN SERUM, PLASMA OR BLOOD BY CREATININE -BASED FORMULA (CKD-EPI 2020) 40 mL/min/{ 1.73_m2} 60 05/18 L Specimen Type: PLASMA Comment: eGFR was calculated using the CKD-EPI Creatinine (2020) equation. Low-risk levels (desirable) <200 mg/dL Moderate-ri sk levels (borderline ) 200-239 mg/dL High-risk levels: >= 240 mg/dL Normal: <150 mg/dL -Borderline High: 150-199 mg/dL -High: 200-499 mg/dL -Very High: >500 mg/dL Optimal: <100 mg/dL -Near Optimal/Abo ve Optimal: 100-129 mg/dL -Borderline High: 130-159 mg/dL -High: 160-189 mg/dL -Very High: >=190 mg/dL Ordering Provider: CHRIS QUINTANA Report Released Date/Time: May 26, 2023 11:02 AM Reporting Lab: [address] [address] Performing Lab: [place] [phone] [facility] COMPREHE NSIVE PNL GLUCOSE [MASS/VOLU ME] IN SERUM OR PLASMA 110 mg/dL 70 - 99 05/18 H Specimen Type: PLASMA Comment: eGFR was calculated using the CKD-EPI Creatinine (2020) equation. Low-risk levels (desirable) <200 mg/dL Moderate-ri sk levels (borderline ) 200-239 mg/dL High-risk levels: >= 240 mg/dL Normal: <150 mg/dL -Borderline High: 150-199 mg/dL -High: 200-499 mg/dL -Very High: >500 mg/dL Optimal: <100 mg/dL -Near Optimal/Abo ve Optimal: 100-129 mg/dL -Borderline High: 130-159 mg/dL -High: 160-189 mg/dL -Very High: >=190 mg/dL Ordering Provider: CHRIS QUINTANA Report Released Date/Time: May 26, 2023 11:02 AM Reporting Lab: [address] [phone] Performing Lab: [address] [phone] [facility] COMPREHE NSIVE PNL POTASSIUM [MOLES/VOL UME] IN SERUM OR PLASMA 3.9 mmol/L 3.5 - 4.7 05/18 Specimen Type: PLASMA Comment: eGFR was calculated using the CKD-EPI Creatinine (2020) equation. Low-risk levels (desirable) <200 mg/dL Moderate-ri sk levels (borderline ) 200-239 mg/dL High-risk levels: >= 240 mg/dL Normal: <150 mg/dL -Borderline High: 150-199 mg/dL -High: 200-499 mg/dL -Very High: >500 mg/dL Optimal: <100 mg/dL -Near Optimal/Abo ve Optimal: 100-129 mg/dL -Borderline High: 130-159 mg/dL -High: 160-189 mg/dL -Very High: >=190 mg/dL Ordering Provider: CHRIS QUINTANA Report Released Date/Time: May 26, 2023 11:02 AM Reporting Lab: [address] [address] Performing Lab: [place] [address] [address] COMPREHE NSIVE PNL SODIUM [MOLES/VOL UME] IN SERUM OR PLASMA 144 mmol/L 136 - 145 05/18 Specimen Type: PLASMA Comment: eGFR was calculated using the CKD-EPI Creatinine (2020) equation. Low-risk levels (desirable) <200 mg/dL Moderate-ri sk levels (borderline ) 200-239 mg/dL High-risk levels: >= 240 mg/dL Normal: <150 mg/dL -Borderline High: 150-199 mg/dL -High: 200-499 mg/dL -Very High: >500 mg/dL Optimal: <100 mg/dL -Near Optimal/Abo ve Optimal: 100-129 mg/dL -Borderline High: 130-159 mg/dL -High: 160-189 mg/dL -Very High: >=190 mg/dL Ordering Provider: CHRIS QUINTANA Report Released Date/Time: May 26, 2023 11:02 AM Reporting Lab: [address] [address] Performing Lab: [address] [address] [facility] COMPREHE NSIVE PNL BILIRUBIN. TOTAL [MASS/VOLU ME] IN SERUM OR PLASMA 0.8 mg/dL 0.2 - 1.2 05/18 Specimen Type: PLASMA Comment: eGFR was calculated using the CKD-EPI Creatinine (2020) equation. Low-risk levels (desirable) <200 mg/dL Moderate-ri sk levels (borderline ) 200-239 mg/dL High-risk levels: >= 240 mg/dL Normal: <150 mg/dL -Borderline High: 150-199 mg/dL -High: 200-499 mg/dL -Very High: >500 mg/dL Optimal: <100 mg/dL -Near Optimal/Abo ve Optimal: 100-129 mg/dL -Borderline High: 130-159 mg/dL -High: 160-189 mg/dL -Very High: >=190 mg/dL Ordering Provider: CHRIS QUINTANA Report Released Date/Time: May 26, 2023 11:02 AM Reporting Lab: [address] [address] Performing Lab: [address] [address] [facility] COMPREHE NSIVE PNL PROTEIN [MASS/VOLU ME] IN SERUM OR PLASMA 6.9 g/dL 5.7 - 8.2 05/18 Specimen Type: PLASMA Comment: eGFR was calculated using the CKD-EPI Creatinine (2020) equation. Low-risk levels (desirable) <200 mg/dL Moderate-ri sk levels (borderline ) 200-239 mg/dL High-risk levels: >= 240 mg/dL Normal: <150 mg/dL -Borderline High: 150-199 mg/dL -High: 200-499 mg/dL -Very High: >500 mg/dL Optimal: <100 mg/dL -Near Optimal/Abo ve Optimal: 100-129 mg/dL -Borderline High: 130-159 mg/dL -High: 160-189 mg/dL -Very High: >=190 mg/dL Ordering Provider: CHRIS QUINTANA Report Released Date/Time: May 26, 2023 11:02 AM Reporting Lab: [address] [address] Performing Lab: [address] [address] [facility] COMPREHE NSIVE PNL ALBUMIN [MASS/VOLU ME] IN SERUM OR PLASMA 4.3 g/dL 3.4 - 5.0 05/18 Specimen Type: PLASMA Comment: eGFR was calculated using the CKD-EPI Creatinine (2020) equation. Low-risk levels (desirable) <200 mg/dL Moderate-ri sk levels (borderline ) 200-239 mg/dL High-risk levels: >= 240 mg/dL Normal: <150 mg/dL -Borderline High: 150-199 mg/dL -High: 200-499 mg/dL -Very High: >500 mg/dL Optimal: <100 mg/dL -Near Optimal/Abo ve Optimal: 100-129 mg/dL -Borderline High: 130-159 mg/dL -High: 160-189 mg/dL -Very High: >=190 mg/dL Ordering Provider: CHRIS QUINTANA Report Released Date/Time: May 26, 2023 11:02 AM Reporting Lab: [address] [address] Performing Lab: [place] [phone] [facility] COMPREHE NSIVE PNL ALKALINE PHOSPHATAS E [ENZYMATIC ACTIVITY/V OLUME] IN SERUM OR PLASMA 104 U/L 45 - 117 05/18 Specimen Type: PLASMA Comment: eGFR was calculated using the CKD-EPI Creatinine (2020) equation. Low-risk levels (desirable) <200 mg/dL Moderate-ri sk levels (borderline ) 200-239 mg/dL High-risk levels: >= 240 mg/dL Normal: <150 mg/dL -Borderline High: 150-199 mg/dL -High: 200-499 mg/dL -Very High: >500 mg/dL Optimal: <100 mg/dL -Near Optimal/Abo ve Optimal: 100-129 mg/dL -Borderline High: 130-159 mg/dL -High: 160-189 mg/dL -Very High: >=190 mg/dL Ordering Provider: CHRIS QUINTANA Report Released Date/Time: May 26, 2023 11:02 AM Reporting Lab: [address] [address] Performing Lab: [address] [address] [facility] COMPREHE NSIVE PNL ALANINE AMINOTRANS FERASE [ENZYMATIC ACTIVITY/V OLUME] IN SERUM OR PLASMA 20 U/L - 05/18 Specimen Type: PLASMA Comment: eGFR was calculated using the CKD-EPI Creatinine (2020) equation. Low-risk levels (desirable) <200 mg/dL Moderate-ri sk levels (borderline ) 200-239 mg/dL High-risk levels: >= 240 mg/dL Normal: <150 mg/dL -Borderline High: 150-199 mg/dL -High: 200-499 mg/dL -Very High: >500 mg/dL Optimal: <100 mg/dL -Near Optimal/Abo ve Optimal: 100-129 mg/dL -Borderline High: 130-159 mg/dL -High: 160-189 mg/dL -Very High: >=190 mg/dL Ordering Provider: CHRIS QUINTANA Report Released Date/Time: May 26, 2023 11:02 AM Reporting Lab: [address] [address] Performing Lab: [place] [phone] [facility] COMPREHE NSIVE PNL ASPARTATE AMINOTRANS FERASE [ENZYMATIC ACTIVITY/V OLUME] IN SERUM OR PLASMA 14 U/L - 37 05/18 Specimen Type: PLASMA Comment: eGFR was calculated using the CKD-EPI Creatinine (2020) equation. Low-risk levels (desirable) <200 mg/dL Moderate-ri sk levels (borderline ) 200-239 mg/dL High-risk levels: >= 240 mg/dL Normal: <150 mg/dL -Borderline High: 150-199 mg/dL -High: 200-499 mg/dL -Very High: >500 mg/dL Optimal: <100 mg/dL -Near Optimal/Abo ve Optimal: 100-129 mg/dL -Borderline High: 130-159 mg/dL -High: 160-189 mg/dL -Very High: >=190 mg/dL Ordering Provider: CHRIS QUINTANA Report Released Date/Time: May 26, 2023 11:02 AM Reporting Lab: [address] [address] Performing Lab: [address] [address] [facility] COMPREHE NSIVE PNL UREA NITROGEN [MASS/VOLU ME] IN SERUM OR PLASMA 25 mg/dL 7 - 05/18 /2025 H Specimen Type: PLASMA Comment: eGFR was calculated using the CKD-EPI Creatinine (2020) equation. Low-risk levels (desirable) <200 mg/dL Moderate-ri sk levels (borderline ) 200-239 mg/dL High-risk levels: >= 240 mg/dL Normal: <150 mg/dL -Borderline High: 150-199 mg/dL -High: 200-499 mg/dL -Very High: >500 mg/dL Optimal: <100 mg/dL -Near Optimal/Abo ve Optimal: 100-129 mg/dL -Borderline High: 130-159 mg/dL -High: 160-189 mg/dL -Very High: >=190 mg/dL Ordering Provider: CHRIS QUINTANA Report Released Date/Time: May 26, 2023 11:02 AM Reporting Lab: [address] [address] Performing Lab: [place] [phone] [facility] COMPREHE NSIVE PNL CALCIUM, TOTAL 9.8 mg/dL 8.7 - 10.4 05/18 Specimen Type: PLASMA Comment: eGFR was calculated using the CKD-EPI Creatinine (2020) equation. Low-risk levels (desirable) <200 mg/dL Moderate-ri sk levels (borderline ) 200-239 mg/dL High-risk levels: >= 240 mg/dL Normal: <150 mg/dL -Borderline High: 150-199 mg/dL -High: 200-499 mg/dL -Very High: >500 mg/dL Optimal: <100 mg/dL -Near Optimal/Abo ve Optimal: 100-129 mg/dL -Borderline High: 130-159 mg/dL -High: 160-189 mg/dL -Very High: >=190 mg/dL Ordering Provider: CHRIS QUINTANA Report Released Date/Time: May 26, 2023 11:02 AM Reporting Lab: [address] [address] Performing Lab: [place] [phone] [facility] COMPREHE NSIVE PNL CARBON DIOXIDE, TOTAL [MOLES/VOL UME] IN SERUM OR PLASMA 28 mmol/L 05/18 Specimen Type: PLASMA Comment: eGFR was calculated using the CKD-EPI Creatinine (2020) equation. Low-risk levels (desirable) <200 mg/dL Moderate-ri sk levels (borderline ) 200-239 mg/dL High-risk levels: >= 240 mg/dL Normal: <150 mg/dL -Borderline High: 150-199 mg/dL -High: 200-499 mg/dL -Very High: >500 mg/dL Optimal: <100 mg/dL -Near Optimal/Abo ve Optimal: 100-129 mg/dL -Borderline High: 130-159 mg/dL -High: 160-189 mg/dL -Very High: >=190 mg/dL Ordering Provider: CHRIS QUINTANA Report Released Date/Time: May 26, 2023 11:02 AM Reporting Lab: [address] [address] Performing Lab: [address] [address] [facility] COMPREHE NSIVE PNL CHLORIDE [MOLES/VOL UME] IN SERUM OR PLASMA 108 mmol/L 98 - 109 05/18 Specimen Type: PLASMA Comment: eGFR was calculated using the CKD-EPI Creatinine (2020) equation. Low-risk levels (desirable) <200 mg/dL Moderate-ri sk levels (borderline ) 200-239 mg/dL High-risk levels: >= 240 mg/dL Normal: <150 mg/dL -Borderline High: 150-199 mg/dL -High: 200-499 mg/dL -Very High: >500 mg/dL Optimal: <100 mg/dL -Near Optimal/Abo ve Optimal: 100-129 mg/dL -Borderline High: 130-159 mg/dL -High: 160-189 mg/dL -Very High: >=190 mg/dL Ordering Provider: CHRIS QUINTANA Report Released Date/Time: May 26, 2023 11:02 AM Reporting Lab: [address] [address] Performing Lab: [address] [address] [facility] COMPREHE NSIVE PNL CREATININE [MASS/VOLU ME] IN URINE 1.74 mg/dL 0.73 - 1.18 05/18 H Specimen Type: PLASMA Comment: eGFR was calculated using the CKD-EPI Creatinine (2020) equation. Low-risk levels (desirable) <200 mg/dL Moderate-ri sk levels (borderline ) 200-239 mg/dL High-risk levels: >= 240 mg/dL Normal: <150 mg/dL -Borderline High: 150-199 mg/dL -High: 200-499 mg/dL -Very High: >500 mg/dL Optimal: <100 mg/dL -Near Optimal/Abo ve Optimal: 100-129 mg/dL -Borderline High: 130-159 mg/dL -High: 160-189 mg/dL -Very High: >=190 mg/dL Ordering Provider: CHRIS QUINTANA Report Released Date/Time: May 26, 2023 11:02 AM Reporting Lab: [place] [address] Performing Lab: [place] [address] [facility] CBC W/DIFF LEUKOCYTES [#/VOLUME] IN BLOOD BY AUTOMATED COUNT 9.3 10*3/uL 4.0 - 11.0 05/18 Specimen Type: BLOOD No comment entered. Ordering Provider: CHRIS QUINTANA Report Released Date/Time: May 26, 2023 11:02 AM Reporting Lab: [place] [phone] Performing Lab: [place] [phone] [facility] CBC W/DIFF ERYTHROCYT ES [#/VOLUME] IN BLOOD BY AUTOMATED COUNT 5.13 10*6/uL 4.20 - 5.70 05/18 Specimen Type: BLOOD No comment entered. Ordering Provider: CHRIS QUINTANA Report Released Date/Time: May 26, 2023 11:02 AM Reporting Lab: [place] [phone] Performing Lab: [place] [address] [facility] CBC W/DIFF HEMOGLOBIN [MASS/VOLU ME] IN BLOOD 15.7 g/dL 13.0 - 17.0 05/18 Specimen Type: BLOOD No comment entered. Ordering Provider: CHRIS QUINTANA Report Released Date/Time: May 26, 2023 11:02 AM Reporting Lab: [facility] [address] [address] Performing Lab: [facility] [address] [address] [facility] CBC W/DIFF HEMATOCRIT [VOLUME FRACTION] OF BLOOD BY AUTOMATED COUNT 47.6 40.0 - 51.0 05/18 Specimen Type: BLOOD No comment entered. Ordering Provider: CHRIS QUINTANA Report Released Date/Time: May 26, 2023 11:02 AM Reporting Lab: [facility] [address] [place] [phone] Performing Lab: [facility] [address] [place] [phone] [facility] CBC W/DIFF MCV [ENTITIC VOLUME] BY AUTOMATED COUNT 92.8 fL 82.0 - 99.0 05/18 Specimen Type: BLOOD No comment entered. Ordering Provider: CHRIS QUINTANA Report Released Date/Time: May 26, 2023 11:02 AM Reporting Lab: [address] [address] Performing Lab: [address] [address] [facility] CBC W/DIFF MCHC [MASS/VOLU ME] BY AUTOMATED COUNT 30.6 pg 27.0 - 34.0 05/18 Specimen Type: BLOOD No comment entered. Ordering Provider: CHRIS QUINTANA Report Released Date/Time: May 26, 2023 11:02 AM Reporting Lab: [address] [address] Performing Lab: [facility] [address] [place] [phone] [facility] CBC W/DIFF MCHC [MASS/VOLU ME] BY AUTOMATED COUNT 33.0 g/dL 31.0 - 37.0 05/18 Specimen Type: BLOOD No comment entered. Ordering Provider: CHRIS QUINTANA Report Released Date/Time: May 26, 2023 11:02 AM Reporting Lab: [address] [address] Performing Lab: [facility] [address] [place] [address] [facility] CBC W/DIFF PLATELET MEAN VOLUME [ENTITIC VOLUME] IN BLOOD BY AUTOMATED COUNT 12.4 fL 8.0 - 12.0 05/18 H Specimen Type: BLOOD No comment entered. Ordering Provider: CHRIS QUINTANA Report Released Date/Time: May 26, 2023 11:02 AM Reporting Lab: [address] [address] Performing Lab: [address] [address] [facility] CBC W/DIFF PLATELETS [#/VOLUME] IN BLOOD BY AUTOMATED COUNT 253 10*3/uL 130 - 400 05/18 Specimen Type: BLOOD No comment entered. Ordering Provider: CHRIS QUINTANA Report Released Date/Time: May 26, 2023 11:02 AM Reporting Lab: [address] [address] Performing Lab: [address] [address] [facility] CBC W/DIFF ERYTHROCYT E DISTRIBUTI ON WIDTH [RATIO] BY AUTOMATED COUNT 14.5 < 15.0 - 15.0 05/18 Specimen Type: BLOOD No comment entered. Ordering Provider: CHRIS QUINTANA Report Released Date/Time: May 26, 2023 11:02 AM Reporting Lab: [address] [address] Performing Lab: [address] [address] [facility] CBC W/DIFF NEUTROPHIL S/100 LEUKOCYTES IN BLOOD BY AUTOMATED COUNT 77.2 05/18 Specimen Type: BLOOD No comment entered. Ordering Provider: CHRIS QUINTANA Report Released Date/Time: May 26, 2023 11:02 AM Reporting Lab: [address] [address] Performing Lab: [address] [address] [facility] CBC W/DIFF LYMPHOCYTE S/100 LEUKOCYTES IN BLOOD BY AUTOMATED COUNT 13.4 05/18 Specimen Type: BLOOD No comment entered. Ordering Provider: CHRIS QUINTANA Report Released Date/Time: May 26, 2023 11:02 AM Reporting Lab: [address] [address] Performing Lab: [facility] [address] [place] [phone] [facility] CBC W/DIFF MONOCYTES/ 100 LEUKOCYTES IN BLOOD BY AUTOMATED COUNT 6.7 05/18 Specimen Type: BLOOD No comment entered. Ordering Provider: CHRIS QUINTANA Report Released Date/Time: May 26, 2023 11:02 AM Reporting Lab: [address] [address] Performing Lab: [address] [address] [facility] CBC W/DIFF EOSINOPHIL S/100 LEUKOCYTES IN BLOOD BY AUTOMATED COUNT 1.9 05/18 Specimen Type: BLOOD No comment entered. Ordering Provider: CHRIS QUINTANA Report Released Date/Time: May 26, 2023 11:02 AM Reporting Lab: [address] [address] Performing Lab: [address] [address] [facility] CBC W/DIFF BASOPHILS/ 100 LEUKOCYTES IN BLOOD BY AUTOMATED COUNT 0.6 05/18 Specimen Type: BLOOD No comment entered. Ordering Provider: CHRIS QUINTANA Report Released Date/Time: May 26, 2023 11:02 AM Reporting Lab: [address] [address] Performing Lab: [address] [address] [facility] CBC W/DIFF IMMATURE GRANULOCYT ES/100 LEUKOCYTES IN BLOOD 0.2 05/18 Specimen Type: BLOOD No comment entered. Ordering Provider: CHRIS QUINTANA Report Released Date/Time: May 26, 2023 11:02 AM Reporting Lab: [address] [address] Performing Lab: [address] [address] [facility] CBC W/DIFF NEUTROPHIL S [#/VOLUME] IN BLOOD BY AUTOMATED COUNT 7.1 10*3/uL 1.5 - 8.0 05/18 Specimen Type: BLOOD No comment entered. Ordering Provider: CHRIS QUINTANA Report Released Date/Time: May 26, 2023 11:02 AM Reporting Lab: [address] [place] [address] Performing Lab: [facility] [address] [address] [facility] CBC W/DIFF LYMPHOCYTE S [#/VOLUME] IN BLOOD BY AUTOMATED COUNT 1.2 10*3/uL 1.0 - 4.0 05/18 Specimen Type: BLOOD No comment entered. Ordering Provider: CHRIS QUINTANA Report Released Date/Time: May 26, 2023 11:02 AM Reporting Lab: [facility] [address] [address] Performing Lab: [facility] [address] [address] [facility] CBC W/DIFF MONOCYTES [#/VOLUME] IN BLOOD BY AUTOMATED COUNT 0.6 10*3/uL 0.2 - 1.0 05/18 Specimen Type: BLOOD No comment entered. Ordering Provider: CHRIS QUINTANA Report Released Date/Time: May 26, 2023 11:02 AM Reporting Lab: [facility] [address] [address] Performing Lab: [facility] [address] [address] [facility] CBC W/DIFF EOSINOPHIL S [#/VOLUME] IN BLOOD BY AUTOMATED COUNT 0.2 10*3/uL 0.0 - 0.4 05/18 Specimen Type: BLOOD No comment entered. Ordering Provider: CHRIS QUINTANA Report Released Date/Time: May 26, 2023 11:02 AM Reporting Lab: [facility] [address] [address] Performing Lab: [facility] [address] [address] [facility] CBC W/DIFF BASOPHILS [#/VOLUME] IN BLOOD BY AUTOMATED COUNT 0.1 10*3/uL 0.0 - 0.2 05/18 Specimen Type: BLOOD No comment entered. Ordering Provider: CHRIS QUINTANA Report Released Date/Time: May 26, 2023 11:02 AM Reporting Lab: [facility] [address] [address] Performing Lab: [facility] [address] [facility] [address] [facility] CBC W/DIFF IMMATURE GRANULOCYT ES/100 LEUKOCYTES IN BLOOD <0.110*3 /uL 0.0 - 0.5 05/18 Specimen Type: BLOOD No comment entered. Ordering Provider: CHRIS QUINTANA Report Released Date/Time: May 26, 2023 11:02 AM Reporting Lab: [address] [address] Performing Lab: [address] [address] [facility] CBC W/DIFF NUCLEATED ERYTHROCYT ES/100 ERYTHROCYT ES IN BLOOD 0.0 /100{WBC s} 0.0 - 0.2 05/18 Specimen Type: BLOOD No comment entered. Ordering Provider: CHRIS QUINTANA Report Released Date/Time: May 26, 2023 11:02 AM Reporting Lab: [address] [address] Performing Lab: [address] [address] [facility] CBC W/DIFF NUCLEATED ERYTHROCYT ES [#/VOLUME] IN BLOOD <0.0110* 3/uL 0.00 - 0.01 05/18 Specimen Type: BLOOD No comment entered. Ordering Provider: CHRSI QUINTANA Report Released Date/Time: May 26, 2023 11:02 AM Reporting Lab: [address] [address] Performing Lab: [address] [address] [facility] THYROID CASCADE PANEL THYROTROPI N [UNITS/VOL UME] IN SERUM OR PLASMA 5.264 u[IU]/mL 0.550 - 4.780 05/18 H Specimen Type: SERUM No comment entered. Ordering Provider: CHRIS QUINTANA Report Released Date/Time: May 26, 2023 11:02 AM Reporting Lab: [place] [phone] Performing Lab: [address] [address] [facility] THYROID CASCADE PANEL THYROXINE (T4) FREE [MASS/VOLU ME] IN SERUM OR PLASMA 1.19 ng/dL 0.89 - 1.76 05/18 Specimen Type: SERUM No comment entered. Ordering Provider: CHRIS QUINTANA Report Released Date/Time: May 26, 2023 11:02 AM Reporting Lab: [address] [address] Performing Lab: [place] [phone] [facility] OCCULT BLOOD FIT X1 SCREEN (550) HEMOGLOBIN .GASTROINT ESTINAL.LO WER [PRESENCE] IN STOOL BY IMMUNOASSA Y Positive 06/06 Specimen Type: FECES Comment: Vial submitted to lab without collection date. Vial stability is 15 days after sample collection. Interpret results with caution. Ordering Provider: CHRIS QUINTANA Report Released Date/Time: May 26, 2023 10:43 AM Reporting Lab: [address] [address] Performing Lab: [place] [phone] [facility] A1C % HEMOGLOBIN A1C/HEMOGL OBIN.TOTAL IN BLOOD 5.5 0.0 - 5.6 05/18 Specimen Type: BLOOD Comment: Normal: < or = 5.6% Pre-diabete s: 5.7-6.4% Diabetes Mellitus: > or = 6.5% Values obtained from A1C measurement s can vary. For typical A1C assays, a reported value of 7.0 could actually be between 6.72 and 7.28 if measured by a reference method. A reported value of 9.0 could actually be between 8.73 and 9.27. Ref: http://www. ngsp.org/[place] Pdata.asp Ordering Provider: CHRIS QUINTANA Report Released Date/Time: May 17, 2023 02:53 PM Reporting Lab: [address] [address] Performing Lab: [address] [address] [facility] LIPID PNL CHOLESTERO L IN HDL [MASS/VOLU ME] IN SERUM OR PLASMA 29.8 mg/dL 60 05/18 L Specimen Type: PLASMA Comment: Low-risk levels (desirable) <200 mg/dL Moderate-ri sk levels (borderline ) 200-239 mg/dL High-risk levels: >= 240 mg/dL Normal: <150 mg/dL -Borderline High: 1580-199 mg/dL -High: 200-499 mg/dL -Very High: >500 mg/dL eGFR was calculated using the CKD-EPI Creatinine (2020) equation. Optimal: <100 mg/dL -Near Optimal/Abo ve Optimal: 100-129 mg/dL -Borderline High: 130-159 mg/dL -High: 160-189 mg/dL -Very High: >=190 mg/dL Ordering Provider: CHRIS QUINTANA Report Released Date/Time: May 17, 2023 02:53 PM Reporting Lab: [address] [address] Performing Lab: [address] [address] [facility] LIPID PNL TRIGLYCERI DE [MASS/VOLU ME] IN SERUM OR PLASMA 77 mg/dL 05/18 Specimen Type: PLASMA Comment: Low-risk levels (desirable) <200 mg/dL Moderate-ri sk levels (borderline ) 200-239 mg/dL High-risk levels: >= 240 mg/dL Normal: <150 mg/dL -Borderline High: 1580-199 mg/dL -High: 200-499 mg/dL -Very High: >500 mg/dL eGFR was calculated using the CKD-EPI Creatinine (2020) equation. Optimal: <100 mg/dL -Near Optimal/Abo ve Optimal: 100-129 mg/dL -Borderline High: 130-159 mg/dL -High: 160-189 mg/dL -Very High: >=190 mg/dL Ordering Provider: CHRIS QUINTANA Report Released Date/Time: May 17, 2023 02:53 PM Reporting Lab: [address] [address] Performing Lab: [address] [address] [facility] LIPID PNL CHOLESTERO L IN LDL [MASS/VOLU ME] IN SERUM OR PLASMA BY DIRECT ASSAY can 05/18 Specimen Type: PLASMA Comment: Low-risk levels (desirable) <200 mg/dL Moderate-ri sk levels (borderline ) 200-239 mg/dL High-risk levels: >= 240 mg/dL Normal: <150 mg/dL -Borderline High: 1580-199 mg/dL -High: 200-499 mg/dL -Very High: >500 mg/dL eGFR was calculated using the CKD-EPI Creatinine (2020) equation. Optimal: <100 mg/dL -Near Optimal/Abo ve Optimal: 100-129 mg/dL -Borderline High: 130-159 mg/dL -High: 160-189 mg/dL -Very High: >=190 mg/dL Ordering Provider: CHRIS QUINTANA Report Released Date/Time: May 17, 2023 02:53 PM Reporting Lab: [address] [address] Performing Lab: [address] [address] [facility] LIPID PNL CHOLESTERO L [MASS/VOLU ME] IN SERUM OR PLASMA 138 mg/dL 05/18 Specimen Type: PLASMA Comment: Low-risk levels (desirable) <200 mg/dL Moderate-ri sk levels (borderline ) 200-239 mg/dL High-risk levels: >= 240 mg/dL Normal: <150 mg/dL -Borderline High: 1580-199 mg/dL -High: 200-499 mg/dL -Very High: >500 mg/dL eGFR was calculated using the CKD-EPI Creatinine (2020) equation. Optimal: <100 mg/dL -Near Optimal/Abo ve Optimal: 100-129 mg/dL -Borderline High: 130-159 mg/dL -High: 160-189 mg/dL -Very High: >=190 mg/dL Ordering Provider: CHRIS QUINTANA Report Released Date/Time: May 17, 2023 02:53 PM Reporting Lab: [address] [address] Performing Lab: [address] [address] [facility] LIPID PNL CHOLESTERO L IN LDL [MASS/VOLU ME] IN SERUM OR PLASMA BY CALCSARAI N 92.8 mg/dL 05/18 Specimen Type: PLASMA Comment: Low-risk levels (desirable) <200 mg/dL Moderate-ri sk levels (borderline ) 200-239 mg/dL High-risk levels: >= 240 mg/dL Normal: <150 mg/dL -Borderline High: 1580-199 mg/dL -High: 200-499 mg/dL -Very High: >500 mg/dL eGFR was calculated using the CKD-EPI Creatinine (2020) equation. Optimal: <100 mg/dL -Near Optimal/Abo ve Optimal: 100-129 mg/dL -Borderline High: 130-159 mg/dL -High: 160-189 mg/dL -Very High: >=190 mg/dL Ordering Provider: CHRIS QUINTANA Report Released Date/Time: May 17, 2023 02:53 PM Reporting Lab: [address] [address] Performing Lab: [address] [address] [facility] COMPREHE NSIVE PNL ANION GAP IN SERUM OR PLASMA 10 mmol/L 5 - 15 05/18 Specimen Type: PLASMA Comment: Low-risk levels (desirable) <200 mg/dL Moderate-ri sk levels (borderline ) 200-239 mg/dL High-risk levels: >= 240 mg/dL Normal: <150 mg/dL -Borderline High: 1580-199 mg/dL -High: 200-499 mg/dL -Very High: >500 mg/dL eGFR was calculated using the CKD-EPI Creatinine (2020) equation. Optimal: <100 mg/dL -Near Optimal/Abo ve Optimal: 100-129 mg/dL -Borderline High: 130-159 mg/dL -High: 160-189 mg/dL -Very High: >=190 mg/dL Ordering Provider: CHRIS QUINTANA Report Released Date/Time: May 17, 2023 02:53 PM Reporting Lab: [address] [address] Performing Lab: [address] [address] [facility] COMPREH NSIVE PNL GLOMERULAR FILTRATION RATE/1.73 SQ M.PREDICTE D [VOLUME RATE/AREA] IN SERUM, PLASMA OR BLOOD BY CREATININE -BASED FORMULA (CKD-EPI 2020) 47 mL/min 60 05/18 L Specimen Type: PLASMA Comment: Low-risk levels (desirable) <200 mg/dL Moderate-ri sk levels (borderline ) 200-239 mg/dL High-risk levels: >= 240 mg/dL Normal: <150 mg/dL -Borderline High: 1580-199 mg/dL -High: 200-499 mg/dL -Very High: >500 mg/dL eGFR was calculated using the CKD-EPI Creatinine (2020) equation. Optimal: <100 mg/dL -Near Optimal/Abo ve Optimal: 100-129 mg/dL -Borderline High: 130-159 mg/dL -High: 160-189 mg/dL -Very High: >=190 mg/dL Ordering Provider: CHRIS QUINTANA Report Released Date/Time: May 17, 2023 02:53 PM Reporting Lab: [address] [phone] Performing Lab: [address] [address] [facility] COMPREHE NSIVE PNL GLUCOSE [MASS/VOLU ME] IN SERUM OR PLASMA 108 mg/dL 70 - 99 05/18 H Specimen Type: PLASMA Comment: Low-risk levels (desirable) <200 mg/dL Moderate-ri sk levels (borderline ) 200-239 mg/dL High-risk levels: >= 240 mg/dL Normal: <150 mg/dL -Borderline High: 1580-199 mg/dL -High: 200-499 mg/dL -Very High: >500 mg/dL eGFR was calculated using the CKD-EPI Creatinine (2020) equation. Optimal: <100 mg/dL -Near Optimal/Abo ve Optimal: 100-129 mg/dL -Borderline High: 130-159 mg/dL -High: 160-189 mg/dL -Very High: >=190 mg/dL Ordering Provider: CHRIS QUINTANA Report Released Date/Time: May 17, 2023 02:53 PM Reporting Lab: [address] [phone] Performing Lab: [address] [address] [facility] COMPREHE NSIVE PNL POTASSIUM [MOLES/VOL UME] IN SERUM OR PLASMA 3.7 mmol/L 3.5 - 4.7 05/18 Specimen Type: PLASMA Comment: Low-risk levels (desirable) <200 mg/dL Moderate-ri sk levels (borderline ) 200-239 mg/dL High-risk levels: >= 240 mg/dL Normal: <150 mg/dL -Borderline High: 1580-199 mg/dL -High: 200-499 mg/dL -Very High: >500 mg/dL eGFR was calculated using the CKD-EPI Creatinine (2020) equation. Optimal: <100 mg/dL -Near Optimal/Abo ve Optimal: 100-129 mg/dL -Borderline High: 130-159 mg/dL -High: 160-189 mg/dL -Very High: >=190 mg/dL Ordering Provider: CHRIS QUINTANA Report Released Date/Time: May 17, 2023 02:53 PM Reporting Lab: [address] [phone] Performing Lab: [address] [address] [facility] COMPREHE NSIVE PNL SODIUM [MOLES/VOL UME] IN SERUM OR PLASMA 143 mmol/L 136 - 145 05/18 Specimen Type: PLASMA Comment: Low-risk levels (desirable) <200 mg/dL Moderate-ri sk levels (borderline ) 200-239 mg/dL High-risk levels: >= 240 mg/dL Normal: <150 mg/dL -Borderline High: 1580-199 mg/dL -High: 200-499 mg/dL -Very High: >500 mg/dL eGFR was calculated using the CKD-EPI Creatinine (2020) equation. Optimal: <100 mg/dL -Near Optimal/Abo ve Optimal: 100-129 mg/dL -Borderline High: 130-159 mg/dL -High: 160-189 mg/dL -Very High: >=190 mg/dL Ordering Provider: CHRIS QUINTANA Report Released Date/Time: May 17, 2023 02:53 PM Reporting Lab: [address] [address] Performing Lab: [address] [address] [facility] COMPREHE NSIVE PNL BILIRUBIN. TOTAL [MASS/VOLU ME] IN SERUM OR PLASMA 1.2 mg/dL 0.2 - 1.2 05/18 Specimen Type: PLASMA Comment: Low-risk levels (desirable) <200 mg/dL Moderate-ri sk levels (borderline ) 200-239 mg/dL High-risk levels: >= 240 mg/dL Normal: <150 mg/dL -Borderline High: 1580-199 mg/dL -High: 200-499 mg/dL -Very High: >500 mg/dL eGFR was calculated using the CKD-EPI Creatinine (2020) equation. Optimal: <100 mg/dL -Near Optimal/Abo ve Optimal: 100-129 mg/dL -Borderline High: 130-159 mg/dL -High: 160-189 mg/dL -Very High: >=190 mg/dL Ordering Provider: CHRIS QUINTANA Report Released Date/Time: May 17, 2023 02:53 PM Reporting Lab: [address] [address] Performing Lab: [address] [address] [facility] COMPREHE NSIVE PNL PROTEIN [MASS/VOLU ME] IN SERUM OR PLASMA 7.3 g/dL 5.7 - 8.2 05/18 Specimen Type: PLASMA Comment: Low-risk levels (desirable) <200 mg/dL Moderate-ri sk levels (borderline ) 200-239 mg/dL High-risk levels: >= 240 mg/dL Normal: <150 mg/dL -Borderline High: 1580-199 mg/dL -High: 200-499 mg/dL -Very High: >500 mg/dL eGFR was calculated using the CKD-EPI Creatinine (2020) equation. Optimal: <100 mg/dL -Near Optimal/Abo ve Optimal: 100-129 mg/dL -Borderline High: 130-159 mg/dL -High: 160-189 mg/dL -Very High: >=190 mg/dL Ordering Provider: CHRIS QUINTANA Report Released Date/Time: May 17, 2023 02:53 PM Reporting Lab: [address] [address] Performing Lab: [address] [phone] [facility] COMPREHE NSIVE PNL ALBUMIN [MASS/VOLU ME] IN SERUM OR PLASMA 4.4 g/dL 3.4 - 5.0 05/18 Specimen Type: PLASMA Comment: Low-risk levels (desirable) <200 mg/dL Moderate-ri sk levels (borderline ) 200-239 mg/dL High-risk levels: >= 240 mg/dL Normal: <150 mg/dL -Borderline High: 1580-199 mg/dL -High: 200-499 mg/dL -Very High: >500 mg/dL eGFR was calculated using the CKD-EPI Creatinine (2020) equation. Optimal: <100 mg/dL -Near Optimal/Abo ve Optimal: 100-129 mg/dL -Borderline High: 130-159 mg/dL -High: 160-189 mg/dL -Very High: >=190 mg/dL Ordering Provider: CHRIS QUINTANA Report Released Date/Time: May 17, 2023 02:53 PM Reporting Lab: [address] [address] Performing Lab: [address] [address] [facility] COMPREHE NSIVE PNL ALKALINE PHOSPHATAS E [ENZYMATIC ACTIVITY/V OLUME] IN SERUM OR PLASMA 112 U/L 45 - 117 05/18 Specimen Type: PLASMA Comment: Low-risk levels (desirable) <200 mg/dL Moderate-ri sk levels (borderline ) 200-239 mg/dL High-risk levels: >= 240 mg/dL Normal: <150 mg/dL -Borderline High: 1580-199 mg/dL -High: 200-499 mg/dL -Very High: >500 mg/dL eGFR was calculated using the CKD-EPI Creatinine (2020) equation. Optimal: <100 mg/dL -Near Optimal/Abo ve Optimal: 100-129 mg/dL -Borderline High: 130-159 mg/dL -High: 160-189 mg/dL -Very High: >=190 mg/dL Ordering Provider: CHRIS QUINTANA Report Released Date/Time: May 17, 2023 02:53 PM Reporting Lab: [address] [address] Performing Lab: [address] [address] [facility] COMPREHE NSIVE PNL ALANINE AMINOTRANS FERASE [ENZYMATIC ACTIVITY/V OLUME] IN SERUM OR PLASMA 18 U/L 10 - 65 05/18 Specimen Type: PLASMA Comment: Low-risk levels (desirable) <200 mg/dL Moderate-ri sk levels (borderline ) 200-239 mg/dL High-risk levels: >= 240 mg/dL Normal: <150 mg/dL -Borderline High: 1580-199 mg/dL -High: 200-499 mg/dL -Very High: >500 mg/dL eGFR was calculated using the CKD-EPI Creatinine (2020) equation. Optimal: <100 mg/dL -Near Optimal/Abo ve Optimal: 100-129 mg/dL -Borderline High: 130-159 mg/dL -High: 160-189 mg/dL -Very High: >=190 mg/dL Ordering Provider: CHRIS QUINTANA Report Released Date/Time: May 17, 2023 02:53 PM Reporting Lab: [address] [id number] Performing Lab: [address] [phone] [facility] COMPREHE NSIVE PNL ASPARTATE AMINOTRANS FERASE [ENZYMATIC ACTIVITY/V OLUME] IN SERUM OR PLASMA 18 U/L 10 - 37 05/18 Specimen Type: PLASMA Comment: Low-risk levels (desirable) <200 mg/dL Moderate-ri sk levels (borderline ) 200-239 mg/dL High-risk levels: >= 240 mg/dL Normal: <150 mg/dL -Borderline High: 1580-199 mg/dL -High: 200-499 mg/dL -Very High: >500 mg/dL eGFR was calculated using the CKD-EPI Creatinine (2020) equation. Optimal: <100 mg/dL -Near Optimal/Abo ve Optimal: 100-129 mg/dL -Borderline High: 130-159 mg/dL -High: 160-189 mg/dL -Very High: >=190 mg/dL Ordering Provider: CHRIS QUINTANA Report Released Date/Time: May 17, 2023 02:53 PM Reporting Lab: [address] [phone] Performing Lab: [address] [phone] [facility] COMPREHE NSIVE PNL UREA NITROGEN [MASS/VOLU ME] IN SERUM OR PLASMA 23 mg/dL 7 - 05/18 H Specimen Type: PLASMA Comment: Low-risk levels (desirable) <200 mg/dL Moderate-ri sk levels (borderline ) 200-239 mg/dL High-risk levels: >= 240 mg/dL Normal: <150 mg/dL -Borderline High: 1580-199 mg/dL -High: 200-499 mg/dL -Very High: >500 mg/dL eGFR was calculated using the CKD-EPI Creatinine (2020) equation. Optimal: <100 mg/dL -Near Optimal/Abo ve Optimal: 100-129 mg/dL -Borderline High: 130-159 mg/dL -High: 160-189 mg/dL -Very High: >=190 mg/dL Ordering Provider: CHRIS QUINTANA Report Released Date/Time: May 17, 2023 02:53 PM Reporting Lab: [address] [address] Performing Lab: [address] [address] [facility] COMPREHE NSIVE PNL CALCIUM, TOTAL 10.0 mg/dL 8.7 - 10.4 05/18 Specimen Type: PLASMA Comment: Low-risk levels (desirable) <200 mg/dL Moderate-ri sk levels (borderline ) 200-239 mg/dL High-risk levels: >= 240 mg/dL Normal: <150 mg/dL -Borderline High: 1580-199 mg/dL -High: 200-499 mg/dL -Very High: >500 mg/dL eGFR was calculated using the CKD-EPI Creatinine (2020) equation. Optimal: <100 mg/dL -Near Optimal/Abo ve Optimal: 100-129 mg/dL -Borderline High: 130-159 mg/dL -High: 160-189 mg/dL -Very High: >=190 mg/dL Ordering Provider: CHRIS QUINTANA Report Released Date/Time: May 17, 2023 02:53 PM Reporting Lab: [address] [address] Performing Lab: [address] [address] [facility] COMPREHE NSIVE PNL CARBON DIOXIDE, TOTAL [MOLES/VOL UME] IN SERUM OR PLASMA 26.0 mmol/L 21.0 - 32.0 05/18 Specimen Type: PLASMA Comment: Low-risk levels (desirable) <200 mg/dL Moderate-ri sk levels (borderline ) 200-239 mg/dL High-risk levels: >= 240 mg/dL Normal: <150 mg/dL -Borderline High: 1580-199 mg/dL -High: 200-499 mg/dL -Very High: >500 mg/dL eGFR was calculated using the CKD-EPI Creatinine (2020) equation. Optimal: <100 mg/dL -Near Optimal/Abo ve Optimal: 100-129 mg/dL -Borderline High: 130-159 mg/dL -High: 160-189 mg/dL -Very High: >=190 mg/dL Ordering Provider: CHRIS QUINTANA Report Released Date/Time: May 17, 2023 02:53 PM Reporting Lab: [address] [address] Performing Lab: [address] [address] [facility] COMPREHE NSIVE PNL CHLORIDE [MOLES/VOL UME] IN SERUM OR PLASMA 107 mmol/L 98 - 109 05/18 Specimen Type: PLASMA Comment: Low-risk levels (desirable) <200 mg/dL Moderate-ri sk levels (borderline ) 200-239 mg/dL High-risk levels: >= 240 mg/dL Normal: <150 mg/dL -Borderline High: 1580-199 mg/dL -High: 200-499 mg/dL -Very High: >500 mg/dL eGFR was calculated using the CKD-EPI Creatinine (2020) equation. Optimal: <100 mg/dL -Near Optimal/Abo ve Optimal: 100-129 mg/dL -Borderline High: 130-159 mg/dL -High: 160-189 mg/dL -Very High: >=190 mg/dL Ordering Provider: CHRIS QUINTANA Report Released Date/Time: May 17, 2023 02:53 PM Reporting Lab: [address] [address] Performing Lab: [address] [address] [facility] COMPREHE NSIVE PNL CREATININE [MASS/VOLU ME] IN URINE 1.52 mg/dL 0.67 - 1.17 05/18 H Specimen Type: PLASMA Comment: Low-risk levels (desirable) <200 mg/dL Moderate-ri sk levels (borderline ) 200-239 mg/dL High-risk levels: >= 240 mg/dL Normal: <150 mg/dL -Borderline High: 1580-199 mg/dL -High: 200-499 mg/dL -Very High: >500 mg/dL eGFR was calculated using the CKD-EPI Creatinine (2020) equation. Optimal: <100 mg/dL -Near Optimal/Abo ve Optimal: 100-129 mg/dL -Borderline High: 130-159 mg/dL -High: 160-189 mg/dL -Very High: >=190 mg/dL Ordering Provider: CHRIS QUINTANA Report Released Date/Time: May 17, 2023 02:53 PM Reporting Lab: [place] [phone] Performing Lab: [address] [address] [facility] CBC W/DIFF LEUKOCYTES [#/VOLUME] IN BLOOD BY AUTOMATED COUNT 7.2 10*3/uL 4.0 - 11.0 05/18 Specimen Type: BLOOD No comment entered. Ordering Provider: CHRIS QUINTANA Report Released Date/Time: May 17, 2023 02:53 PM Reporting Lab: [address] [address] Performing Lab: [address] [address] [facility] CBC W/DIFF ERYTHROCYT ES [#/VOLUME] IN BLOOD BY AUTOMATED COUNT 5.30 10*6/uL 4.20 - 5.70 05/18 Specimen Type: BLOOD No comment entered. Ordering Provider: CHRIS QUINTANA Report Released Date/Time: May 17, 2023 02:53 PM Reporting Lab: [address] [address] Performing Lab: [address] [address] [facility] CBC W/DIFF HEMOGLOBIN [MASS/VOLU ME] IN BLOOD 16.0 g/dL 13.0 - 17.0 05/18 Specimen Type: BLOOD No comment entered. Ordering Provider: CHRIS QUINTANA Report Released Date/Time: May 17, 2023 02:53 PM Reporting Lab: [address] [address] Performing Lab: [address] [address] [facility] CBC W/DIFF HEMATOCRIT [VOLUME FRACTION] OF BLOOD BY AUTOMATED COUNT 48.4 40.0 - 51.0 03/07 /2024 Specimen Type: BLOOD No comment entered. Ordering Provider: CHRIS QUINTANA Report Released Date/Time: May 17, 2023 02:53 PM Reporting Lab: [address] [phone] Performing Lab: [address] [address] [facility] CBC W/DIFF MCV [ENTITIC VOLUME] BY AUTOMATED COUNT 91.3 fL 82 - 99 05/18 Specimen Type: BLOOD No comment entered. Ordering Provider: CHRIS QUINTANA Report Released Date/Time: May 17, 2023 02:53 PM Reporting Lab: [address] [address] Performing Lab: [address] [address] [facility] CBC W/DIFF MCHC [MASS/VOLU ME] BY AUTOMATED COUNT 30.2 pg 27 - 34 05/18 Specimen Type: BLOOD No comment entered. Ordering Provider: CHRIS QUINTANA Report Released Date/Time: May 17, 2023 02:53 PM Reporting Lab: [address] [address] Performing Lab: [address] [address] [facility] CBC W/DIFF MCHC [MASS/VOLU ME] BY AUTOMATED COUNT 33.1 g/dL 31 - 37 05/18 Specimen Type: BLOOD No comment entered. Ordering Provider: CHRIS QUINTANA Report Released Date/Time: May 17, 2023 02:53 PM Reporting Lab: [address] [address] Performing Lab: [address] [address] [facility] CBC W/DIFF PLATELET MEAN VOLUME [ENTITIC VOLUME] IN BLOOD BY AUTOMATED COUNT 13.0 fL 8 - 12 05/18 H Specimen Type: BLOOD No comment entered. Ordering Provider: CHRIS QUINTANA Report Released Date/Time: May 17, 2023 02:53 PM Reporting Lab: [address] [address] Performing Lab: [address] [address] [facility] CBC W/DIFF PLATELETS [#/VOLUME] IN BLOOD BY AUTOMATED COUNT 234 10*3/uL 130 - 400 05/18 Specimen Type: BLOOD No comment entered. Ordering Provider: CHRIS QUINTANA Report Released Date/Time: May 17, 2023 02:53 PM Reporting Lab: [address] [address] Performing Lab: [address] [address] [facility] CBC W/DIFF ERYTHROCYT E DISTRIBUTI ON WIDTH [RATIO] BY AUTOMATED COUNT 15.6 < 15.0 - 15.0 05/18 H Specimen Type: BLOOD No comment entered. Ordering Provider: CHRIS QUINTANA Report Released Date/Time: May 17, 2023 02:53 PM Reporting Lab: [address] [address] Performing Lab: [address] [address] [facility] CBC W/DIFF NEUTROPHIL S/100 LEUKOCYTES IN BLOOD BY AUTOMATED COUNT 79.0 05/18 Specimen Type: BLOOD No comment entered. Ordering Provider: CHRIS QUINTANA Report Released Date/Time: May 17, 2023 02:53 PM Reporting Lab: [address] [address] Performing Lab: [address] [address] [facility] CBC W/DIFF LYMPHOCYTE S/100 LEUKOCYTES IN BLOOD BY AUTOMATED COUNT 11.0 05/18 Specimen Type: BLOOD No comment entered. Ordering Provider: CHRIS QUINTANA Report Released Date/Time: May 17, 2023 02:53 PM Reporting Lab: [address] [address] Performing Lab: [address] [address] [facility] CBC W/DIFF MONOCYTES/ 100 LEUKOCYTES IN BLOOD BY AUTOMATED COUNT 8.1 05/18 Specimen Type: BLOOD No comment entered. Ordering Provider: CHRIS QUINTANA Report Released Date/Time: May 17, 2023 02:53 PM Reporting Lab: [address] [address] Performing Lab: [address] [address] [facility] CBC W/DIFF EOSINOPHIL S/100 LEUKOCYTES IN BLOOD BY AUTOMATED COUNT 1.0 05/18 Specimen Type: BLOOD No comment entered. Ordering Provider: CHRIS QUINTANA Report Released Date/Time: May 17, 2023 02:53 PM Reporting Lab: [address] [address] Performing Lab: [address] [address] [facility] CBC W/DIFF BASOPHILS/ 100 LEUKOCYTES IN BLOOD BY AUTOMATED COUNT 0.6 05/18 Specimen Type: BLOOD No comment entered. Ordering Provider: CHRIS QUINTANA Report Released Date/Time: May 17, 2023 02:53 PM Reporting Lab: [address] [address] Performing Lab: [address] [address] [facility] CBC W/DIFF IMMATURE GRANULOCYT ES/100 LEUKOCYTES IN BLOOD 0.3 05/18 Specimen Type: BLOOD No comment entered. Ordering Provider: CHRIS QUINTANA Report Released Date/Time: May 17, 2023 02:53 PM Reporting Lab: [address] [address] Performing Lab: [address] [address] [facility] CBC W/DIFF NEUTROPHIL S [#/VOLUME] IN BLOOD BY AUTOMATED COUNT 5.7 10*3/uL 1.5 - 8.0 05/18 Specimen Type: BLOOD No comment entered. Ordering Provider: CHRIS QUINTANA Report Released Date/Time: May 17, 2023 02:53 PM Reporting Lab: [address] [address] Performing Lab: [address] [address] [facility] CBC W/DIFF LYMPHOCYTE S [#/VOLUME] IN BLOOD BY AUTOMATED COUNT 0.8 10*3/uL 1.0 - 4.0 05/18 L Specimen Type: BLOOD No comment entered. Ordering Provider: CHRIS QUINTANA Report Released Date/Time: May 17, 2023 02:53 PM Reporting Lab: [address] [address] Performing Lab: [address] [address] [facility] CBC W/DIFF MONOCYTES [#/VOLUME] IN BLOOD BY AUTOMATED COUNT 0.6 10*3/uL 0.2 - 1.0 05/18 Specimen Type: BLOOD No comment entered. Ordering Provider: CHRIS QUINTANA Report Released Date/Time: May 17, 2023 02:53 PM Reporting Lab: [address] [address] Performing Lab: [address] [address] [facility] CBC W/DIFF EOSINOPHIL S [#/VOLUME] IN BLOOD BY AUTOMATED COUNT 0.1 10*3/uL 0 - 0.4 05/18 Specimen Type: BLOOD No comment entered. Ordering Provider: CHRIS QUINTANA Report Released Date/Time: May 17, 2023 02:53 PM Reporting Lab: [address] [address] Performing Lab: [address] [address] [facility] CBC W/DIFF BASOPHILS [#/VOLUME] IN BLOOD BY AUTOMATED COUNT <0.110*3 /uL 0 - 0.2 05/18 Specimen Type: BLOOD No comment entered. Ordering Provider: CHRIS QUINTANA Report Released Date/Time: May 17, 2023 02:53 PM Reporting Lab: [address] [address] Performing Lab: [address] [address] [facility] CBC W/DIFF IMMATURE GRANULOCYT ES/100 LEUKOCYTES IN BLOOD <0.110*3 /uL 0 - 0.5 05/18 Specimen Type: BLOOD No comment entered. Ordering Provider: CHRIS QUINTANA Report Released Date/Time: May 17, 2023 02:53 PM Reporting Lab: [address] [address] Performing Lab: [facility] [address] [facility] [address] [facility] CBC W/DIFF NUCLEATED ERYTHROCYT ES/100 ERYTHROCYT ES IN BLOOD 0.0 /100{WBC s} 0 - 0.2 05/18 Specimen Type: BLOOD No comment entered. Ordering Provider: CHRIS QUINTANA Report Released Date/Time: May 17, 2023 02:53 PM Reporting Lab: [address] [address] Performing Lab: [address] [address] [facility] CBC W/DIFF NUCLEATED ERYTHROCYT ES [#/VOLUME] IN BLOOD <0.0110* 3/uL 0 - 0.012 05/18 Specimen Type: BLOOD No comment entered. Ordering Provider: CHRIS QUINTANA Report Released Date/Time: May 17, 2023 02:53 PM Reporting Lab: [address] [address] Performing Lab: [address] [address] [facility] Vital Signs Combined list of inpatient and outpatient Vital Signs from Department of Defense and Veterans Affairs, ranging from 12 months to all on record, depending upon the facility. Vital Sign Value Date Comments Source SYSTOLIC BLOOD PRESSURE 138 05/25/2024 09:19:49 [facility] DIASTOLIC BLOOD PRESSURE 71 05/25/2024 09:19:49 [facility] PULSE OXIMETRY 93 05/25/2024 09:19:49 [facility] WEIGHT 259.9 05/25/2024 09:19:49 [facility] BMI 34 kg/m2 05/25/2024 09:19:49 [facility] PAIN 0 05/25/2024 09:19:49 [facility] TEMPERATURE 99 05/25/2024 09:19:49 [facility] PULSE 73 05/25/2024 09:19:49 [facility] RESPIRATION 16 05/25/2024 09:19:49 [facility] Encounters Combined list of: 1) Encounters from Department of Veterans Affairs facilities going backup to the last 18 months, not all [place] inpatient encounters are included; 2) Encounters from the Department of Defense facilities going backup to 280 months. Location Location Details Encounter Type Encounter Number Reason For Visit Attending Provider ADM Date DC Date Status Disposition Source [facility] Outpatient Encounter [id number] 04/04 [facility] Outpatient Encounter [id number] 05/25 [facility] OFFICE O/P EST MOD 30 MIN [id number] Diagnos is: ICD-10- CM L98.9 Disorde r of the skin and subcuta neous tissue, unspeci fied ALEKSEY QUINTANA 05/25 [facility] Outpatient Encounter [id number] 05/25 [facility] Outpatient Encounter [id number] 05/26 [facility] Outpatient Encounter [id number] 06/06 [facility] Outpatient Encounter [id number] 06/14 [facility] Outpatient Encounter [id number] 09/29 [facility] Outpatient Encounter [id number] 11/07 [facility] OFF/OP EST JULY X REQ PHY/QHP [id number] Diagnos is: ICD-10- CM Z23 Encount er for immuniz atNEGIN Marrero 12/21 [facility] Outpatient Encounter [id number] 05/11 [facility] Outpatient Encounter [id number] 05/25 [facility] Outpatient Encounter [id number] 05/25 [facility] OFFICE O/P EST MOD 30 MIN [id number] Diagnos is: ICD-10- CM 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 Social History Type Response Date Comment Sourc e Tobacco smoking status NHIS [facility]ACCO USE FORMER CIGARETTES 05/25/2024 [facility] History of tobacco use VA-TOBACCO NEVER USED OTHER TYPE 05/25/2024 [facility] History of tobacco use VA-TOBACCO FORMER USER 05/26/2023 [facility] History of tobacco use [place] FORMER USER 04/05/2022 [facility] History of tobacco use VA-TOBACCO FORMER USER 03/12/2021 [facility] History of tobacco use [place]AC[place] FORMER USER 03/13/2020 [facility] History of tobacco use VA-TOBACCO NEVER USED 02/20/2019 [facility] History of tobacco use [place]-TOBACCO NEVER USED 03/02/2018 [facility] History of tobacco use LIFETIME NON-USER OF TOBACCO 04/29/2017 [facility] History of tobacco use LIFETIME NON-USER OF TOBACCO 03/22/2016 [facility] History of tobacco use QUIT TOBACCO >7 YEARS AGO 01/02/2013 [facility]
--- OUTSIDE RECORDS SUMMARY | 2024-07-04 01:09 | XMS_ITS | Data Portability ---
Author Organization [facility], [address] Neurology (ID) Address [address] 4th [place] [address] Care Team Providers Care Crown Ironer Name Role Phone MELANIE CIERRA Primary Care Provider TA ROMERO Primary Care Provider TA ROMERO Referring Provider Assessment Encounter Date Assessment Date Assessment LastModified by Organization Details LastModified Time 08/31/2023 08/31/2023 #Neoplasm of ski n Ddx includes: BCC Location: A) Central chest #Neoplasm of skin Ddx includes: BCC vs melanoma Location: B) Right mid back SEE PROCEDURE SECTION - BIOPSY DONE TODAY Opted for TANGENTIAL BIOPSY After discussion of the risks, benefits, and alternatives, verbal informed consent was obtained. We discussed that a permanent scar will be left at the removal site. The area was scrubbed with alcohol and anesthetized with 1.0% lidocaine with epinephrine. A biopsy was performed using a tangential technique. Hemostasis was achieved with aluminum chloride. Petrolatum and a dressing were applied and postop instructions provided. The specimen was sent for histologic exam, and the patient was asked to call if notification of result has not been received within 2 weeks. RTC first available TBSE areim Not available 08/31/2023 11:44:01 09/27/2023 09/27/2023 RTC previously scheduled appointment areim Not available 09/27/2023 09:53:50 12/12/2023 12/12/2023 RTC previously scheduled appointment areim Not available 12/12/2023 16:23:05 06/25/2024 06/25/2024 #Actinic Keratos es The patient was educated regarding the nature of actinic keratoses, including their premalignant potential, and their association with prior and ongoing ultraviolet exposure. Treatment alternatives were discussed. We stressed the importance of starting a daily photoprotective regimen using broad spectrum SPF 50+ sunscreens, and protective clothing. #H/o NMSC Scars at sites of previous skin cancers are well-healed, and without evidence of recurrence. We reviewed signs and symptoms of skin cancer, and encouraged a return visit for evaluation if any new lesions of concern arise. We reviewed UV precautions and sunscreen use and the need for regular clinic skin exams. #Lentigines #Sun damaged skin The benign nature of these spots was reviewed with the patient, but that they do indicate a history of sun-damage. We discussed that they should be watched for change, and are related to chronic sun exposure. #Multiple Nevi Scattered over trunk and extremities. The patient was reassured of benign exam today. They were instructed to perform monthly self-examinations, with assistance of a partner or mirrors for areas not readily visible. We discussed the ABCDE rule, and the need to call if there are any concerning changes in the color, size, shape, or symptoms of the lesions, or if certain lesions begin to stand out as being different from the rest ( u gly duckling sign ). #Seborrheic Keratoses We discussed the fact that these were benign lesions and they do not require any treatment. The patient was advised that more such lesions may develop. We will observe for now. #Cano Angiomas Benign nature of the lesions discussed with the patient. No treatment needed. RTC 6 months - f/u TBSE areim Not available 06/25/2024 10:55:48 Plan of Treatment Reminders Order Date Submit Date Provider Last Modified By Organization Details Last Modified Time Details Appointments Establish ed Patient 15.EST 2024 09:30A M Dr. Nevin Govea Not available Not available Not available Lab surgical pathology study [address] Only - [facility], [address] [place] [address], [id number], 09/05/2023 17:57:14 Referral None recorded. Procedures None recorded. Surgeries None recorded. Imaging None recorded. Medication Orders None recorded. Patient TargetsNo targets recorded. Patient InstructionsNo instructions recorded. Reason for Referral None Reported. Results Created Date Observation Date Name Description Value Unit Range Abnormal Flag Note LastModifiedBy Organization Detail LastModifiedTime 08/31/19 24 09/05/2023 surgi teddy patho logy study tissue exam biopsy [facility] [address],[place] [address] Ph. Yasmani Lawler MD, PhD, [facility] ALISA GOVEA MD Patie nt: ADRIAN KONG Sampl e ID: [id number] Repor t Statu s: Final :1 1945 Case #: [id number] Age: 77 Y Gende r: M Date Colle cted: 08/30 MRN # : [id number] Date Recei kota: 08/30 Repor jayson Date: 09/04 FINAL DIAGN OSIS: A. Skin, centr al chest , shave biops y : - Basal cell carci noma, nodul ar type ICD-1 0: C44.5 19 B. Skin, right mid back, shave biops y: - Basal cell carci noma, nodul ar and infil trati ve types ICD-1 0: C44.5 19 Elect kate Moreno ied by Dick Sen MD Elect kate gale 09/04 16:54 SPECI MEN SOURC E: A. Skin, centr al chest , shave biops y B. Skin, right mid back, shave biops y GROSS DESCR IPTIO N: The speci men conta iner( s) and requi sitio n have the same patie nt name. A. Recei kota in 10% neutr al buffe red forma dick for forma dick-f ixed paraf fin-e mbedd ed secti ons label ed A, centr al chest is an unori ented 1.2 x 1.0 cm fragm ent of zuluaga- montiel skin excis ed to a depth of 0.1 cm. There is no defin ite lesio n ident ified gross ly on the skin surfa ce. The speci men is inked , seria lly secti oned, and entir rupa submi tted for histo logic study in one casse tte. B. Recei kota in 10% neutr al buffe red forma dick for forma dick-f ixed paraf fin-e mbedd ed secti ons label ed B, R mid back is an unori ented 1.6 x 1.6 cm fragm ent of zuluaga- montiel skin excis ed to a depth of 0.2 cm. There is no defin ite lesio n ident ified gross ly on the skin surfa ce. The speci men is inked , seria lly secti oned, and entir rupa submi tted for histo logic study in two thorn hille ttes. CLINI TEDDY INFOR MATIO N: CLINI TEDDY INFOR MATIO N: A: Skin biops y, centr al chest , BCC. B: Skin biops y, right mid back, BCC vs melan ramu. Not Available Sc Only - [facility] [address] [place] [address], [id number], 09/05/2023 17:57:14 12/12/19 24 12/12/2023 SURGI TEDDY PATHO LOGY spf [facility] at[facility] Order ing Provi yao: Sweet , Alisa any Patie nt Name: ADRIAN KONG #: [id number] /A ge/Ge nder: 1945 (Age: 78) / M Proce dure Date: 2023 SP ECIME N(S) RECEI KOTA * A:Ski n, right mid back, excis ion FI NAL PATHO LOGIC DIAGN OSIS* A. Skin, right mid back, excis ion: - Scar, no resid ual tumor EL ECTRO NICAL LY VERIF IED BY DICK SEN MD 2023 09:40 CL INICA L HISTO RY Basal cell carci noma on back GR OSS DESCR IPTIO N The speci men conta iner( s) and requi sitio n have the same patie nt name. Recei kota in forma dick label ed A, right mid back is an unori ented skin ellip se measu ring 6.5 x 2.4 cm and excis ed up to 1.0 cm. Overl sury the skin is a 1.5 x 1.2 cm irreg ular, hypop igmen jayson scar that is withi n 0.4 cm of the neare st perip heral romy n. The resec tion romy n is inked black , and speci men is seria lly secti oned to revea l gross ly unrem arkab le cut surfa tonya. The entir e speci men is submi tted in A1-A1 2, to inclu de the tips in A1 and A12, and entir e lesio n in A5-A8 . The tissu e is proce ssed as forma dick-f ixed paraf fin-e mbedd ed secti ons. ct/ END T Not Available Tn Only - [facility] [address] [facility] [place], [address], 12/16/2023 10:40:15 09/24/19 24 05/20/2022 imagi ng/di agnos tic resul t No observ ation record ed. [email or web address] Not Available 07:13:01 10/26/19 24 05/20/2022 imagi ng/di agnos tic resul t No observ ation record ed. Not Available 10/26/2023 20:58:24 Result Notes None recorded. 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 2024 [facility] 5 10:51:48 Lentiginosis 458373411 Active 2024 [facility] 10:51:48 Senile angioma 6487617 Active 2024 [facility] 5 10:51:48 Seborrheic keratosis 351893118 Active 2024 Anca Reim [facility] 5 10:51:48 Neoplasm of uncertain behavior of skin 86941024 Active 2023 [facility] Reim [facility] 4 11:43:13 Basal cell carcinoma of truncal skin 627277928 Active 2023 Anca Reim [facility] 4 09:51:49 Problem Notes None recorded. Procedures Surgical History Date Name Laterality Status Provider Name and Address Organization Details Recorded Time 06/26/19 25 [place] Derm Sweet [place] completed [facility] 06/25/2024 10:56:04 12/26/19 24 [place] Derm Sweet Suture Removal completed Fortunato Martinez [facility] 12/26/2023 11:37:19 12/12/19 24 [place] Derm Sweet SURGEXC completed [facility] 12/12/2023 16:37:12 09/27/19 24 [facility] 09/27/2023 09:51:37 08/31/19 24 [facility] 08/31/2023 11:47:11 Colonoscopy with biopsy completed Not Available Health Note 08/30/2023 23:46:05 Total knee arthroplasty completed Not Available Health Note 08/30/2023 23:46:05 Imaging Results Imaging Date Name Status LastModified by Organiz ation Details LastModified Time 05/20/2022 imaging/diag nostic result completed [email or web address] Information not available 09/24/2023 07:13:01 05/20/2022 imaging/diag nostic result completed Information not available 10/26/2023 20:58:24 Procedure Notes None recorded. Medical Equipment None Reported. Allergies Allergen ID Allergen Name Allergen Category Reaction Reaction Severity Criticality Documentation Date Start Date Code Code System Note Provider Name and Address Organization Details Recorded Time 176731 levofloxa yelena medicatio n Not available Not available Not available 04/11/20232019 11136 RxNorm Not Available Not Available Not Available Medications Name Sig Start Date Stop Date Status Note LastModified by Organization Details LastModified Time clonidine HCl 0.1 mg tablet TAKE 1 TABLET BY MOUTH IF SYSTOLIC BLOOD PRESSURE IS HIGHER THAN 160 active Not Available Not Available No t Available Lidocaine Viscous 2 % mucosal solution RINSE AND GARGLE 15 ML BY MOUTH EVERY 4 HOURS NEEDED FOR PAIN active Not Available Not Available No t Available ondansetron HCl 4 mg tablet TAKE 1 TABLET BY MOUTH EVERY 6 HOURS FOR 5 DAYS NEEDED FOR NAUSEA OR VOMITING active Not Available Not Available No t Available hydralazine 25 mg tablet active Not Available Not Available No t Available potassium chloride ER 10 mEq tablet,extende d release active Not Available Not Available No t Available amlodipine 5 mg tablet active Not Available Not Available No t Available peg-electrolyt e solution 420 gram oral solution MIX AND DRINK DIRECTED active Not Available Not Available No t Available sildenafil 100 mg tablet active Not Available Not Available No t Available amoxicillin 500 mg tablet active Not Available Not Availabl e Not Available Synthroid 50 mcg tablet active Not Available Not Available N ot Available bumetanide 1 mg tablet active Not Available Not Available No t Available allopurinol 300 mg tablet active Not Available Not Availabl e Not Available metoprolol succinate ER 25 mg tablet,extende d release 24 hr active Not Available Not Available Not Available amoxicillin 875 mg-potassium clavulanate 125 mg tablet TAKE 1 TABLET BY MOUTH TWICE DAILY FOR 10 DAYS active Not Available Not Available No t Available tobramycin 0.3 %-dexamethason e 0.1 % eye drops,suspensi on INSTILL 1 DROP INTO BOTH EYES TWICE DAILY DIRECTED FOR 5 DAYS THEN BOTH EYES EVERY DAY FOR 1 DAY active Not Available Not Available No t Available rosuvastatin 10 mg tablet active Not Available Not Available Not Available metoprolol tartrate 25 mg tablet active Not Available Not Available Not Available febuxostat 40 mg tablet active Not Available Not Available No t Available Eliquis 5 mg tablet TAKE 1 TABLET BY MOUTH TWICE DAILY active Not Available Not Available No t Available Vitals None Recorded Social History Question Answer Notes LastModified by Organizat ion Details LastModified Time Do You Have An Advance Directive? Yes [email or web address] Information not available 08/30/2023 What Is Your Level Of Alcohol Consumption? Moderate [email or web address] Information not available 08/30/2023 How Many Times Per Week Do You Consume Alcohol? 1-2 Times Per Week [email or web address] Information not available 08/30/2023 What Is Your Level Of Caffeine Consumption? Occasional [email or web address] Information not available 08/30/2023 What Is Your Code Status? DNR [email or web address] Information not available 08/30/2023 Are You Currently Employed? No [email or web address] Information not available 08/30/2023 What Is Your Occupation? Retired [email or web address] Information not available 08/30/2023 How Many Times Per Week Do You Exercise? 1-2 Times Per Week [email or web address] Information not available 08/30/2023 Do You Have A Medical Power Of Rack Puncher? Yes [email or web address] Information not available 08/30/2023 What Was The Date Of Your Most Recent Tobacco Screening? 08/31/2023 [email or web address] Information not available 08/30/2023 What Is Your Relationship Status? [email or web address] Information not available 08/30/2023 Do You Use Any Illicit Or Recreational Drugs? No [email or web address] Information not available 08/30/2023 Sex: Unknown Functional Status Question Answer Note LastModified by Organization D etails LastModified Time What is your exercise level? None [email or web address] Information not available 08/30/2023 Mental Status None recorded. Family History Relationship Description Onset Age of this Age Resolved Age Notes LastModified by Organization Details LastModified Time Father Arthritis [email or web address] Not available 08/30/2023 23:46:04 Medical History Condition Response Diabetes N Anxiety Disorder N Bleeding Disorder N Attention-deficit Hyperactivity Disorder N High Blood Pressure Y Arthritis N Hyperlipidemia N Cancer N Stroke N Thyroid Problems Y COPD N Depression N Asthma N Seizures N Anemia N Heart Disease N Fibromyalgia N Osteoporosis N Kidney Disease Y Past Encounters Encounter ID Performer Location Encounter Start Date Encounter Closed Date Diagnosis/Indication Diagnosis SNOMED-CT Code Diagnosis ICD10 Code Diagnosis Note [id number] MD Saul [facility] ([place]) [address] [place] [address] [place] [address] 08/31/2023 10:46:34 08/31/2023 12:06:50 Neoplasm of uncertain behavior of skin 94849936 D48.5 [id number] MD Saul [facility] ([place]) [address] [place] [address] 09/27/2023 09:13:01 09/27/2023 10:00:36 Basal cell carcinoma of truncal skin 829416187 C44.927 [id number] MD Saul [facility] ([place]) [address] [place] [address] 12/12/2023 15:45:16 12/12/2023 16:43:15 Basal cell carcinoma of back 946978204 C44.519 [id number] MD Saul [facility] ([place]) [address] [place] [address] 12/26/2023 11:19:39 12/26/2023 11:41:28 Removal of suture 29137042 Z48.02 [id number] MD Saul [facility] ([place]) [address] [place] [address] [place] [address] 06/25/2024 10:17:12 06/25/2024 11:00:30 Multiple actinic keratoses 982195915 L57.0 Lentiginosis 576894402 L 81.4 Benign anurag plasm of soft tissue 25588721 D22.9 Seborrheic keratosis 394 171172 L82.1 Solar degeneration 21354 006 L57.8 Senile angioma 3426303 D 18.01 History of malignant neoplasm of skin excluding melanoma 414735044 Z85.828 Health Concerns Section Related Observation LastModified by Organization Detai ls LastModified Time None Recorded Concern Status LastModified by Organization Details LastModified Time None Recorded Advance Directives Directive Y: Payers Encounter Date Sequence Insurance Name Policy Number Policy [place] Covered Member ID [place] Member ID Guarantor Name 08/31/2023 1 [employer] [id number] Adrian Maryana [place] [id number] Adrian L [place] 09/27/2023 1 [employer] [id number] Adrian L [place] [id number] Adrian L [place] 09/27/2023 2 [employer] (MEDICARE SUPPLEMENT) Adrian L [place] [id number] Adrian L [place] 12/12/2023 1 [employer] (O) [id number] Adrian L [place] [id number] Adrian L [place] 12/26/2023 1 [employer] (HMO) [id number] Adrian L [place] [id number] Adrian L [place] 06/25/2024 1 [employer] (HMO) [id number] Adrian L [place] [id number] Adrian L [place] Notes Date Note Type Note Provider Name and Address Organization Details Recorded Time 08/31/2023 text/html Skin LesionRepor jayson bypatient.Location:[facility]; back Quality:itchy; drainage Severity:mild Duration:started: 1-2 years Timing:gradual Context:no known trigger Alleviating Factors:none Aggravating Factors:none Associated Symptoms:no fever; no cold symptoms; no nausea; no vomiting; no diarrhea; no urinary symptoms; no skin flakes; no bruising; no chills; no night sweats;scabs fell off and recur Prior Treatments:POTC antiseptics . NEVIN GOVEA MD [address] [place] [address], [phone], [facility] 08/31/2023 14:58:37 06/25/2024 text/html SC Recheck - Ski n CancerReported bypatient.Khoa Patient presents today for a6 month recheck of skin cancer Recently treated lesion(s)BCC Scar from previously treated lesionhealed well Regular use of sunscreen w/ SPF 15 or greaterNo Regular use of protective clothingYes; Hat Regular performance of self skin examinationsYes Other concerning lesionsNo Use of tanning bedsNo Major change in health status since last visitNo Other concernsNo EPVLS: 12/26/23x of [facility] NEVIN GOVEA MD [address] [place] [address], [phone], [facility] 06/25/2024 11:46:45
[2024-07-04] MEDS: NACL 0.9% IRRIGATION POUR BOTTLE 500 ML 1500 ML (01:26)
--- NOTE | 2024-07-04 01:26 | PC.NURSE ---
edp at bedside to flush catheter. Urine collection bag placed to collect exchange.
[2024-07-04 01:41] LABS: Add Urine Microscopic? YES; Appearance Urine Clear (Clear); Bacteria Urine None Seen /hpf; Bilirubin Urine 1+ (Negative); Blood Urine 3+ (Negative); Color Urine Red (Yellow); Glucose Urine UA Negative (Negative); Ketones Urine Negative (Negative); Leukocyte Esterase Ur 2+ LEU/UL (Negative); Nitrate Urine Positive (Negative); Non Pathogenic Casts 0-2; Protein Urine 3+ mg/dL (Negative); Squamous Epithelial Cell Urine None Seen /hpf (Few); Urobilinogen Urine 0.2 mg/dL (<2.0); WBC Urine >100 /hpf (0-3); pH Urine 6.5 (5.0-9.0)
[2024-07-04 01:42] LABS: RBC Urine >100 /hpf (0-2)
[2024-07-04] MEDS: CEFDINIR 300 MG CAPSULE PO (02:13)
== END 2024-07-04 02:56 | disposition home or self-care (01) ==
LOC: ANHED 01:06
PROVIDERS: Emergency Provider Physician Assistant
DX: N39.0 Urinary tract infection, site not specified (principal); T83.098A Other mechanical complication of other urinary catheter, initial encounter; Y73.1 Therapeutic (nonsurgical) and rehabilitative gastroenterology and urology devices associated with adverse incidents; I48.91 Unspecified atrial fibrillation; Z79.01 Long term (current) use of anticoagulants; N18.9 Chronic kidney disease, unspecified
CPT/HCPCS: 81001; 87086; 99283; A9270